=== PATIENT | male | born 1960 | race Caucasian/White ===

== ENCOUNTER 2018-01-26 16:10 | Emergency (ER) | payer OTHER ==
[~2018-01-26] VITALS: Ht 172.7 cm; Wt 81.0 kg
[2018-01-26 16:16] VITALS: TEMP 37; Ht 172.7 cm; Wt 81.0 kg
[2018-01-26 16:20] VITALS: O2SAT 98
[2018-01-26] MEDS: MoRPHine SULFATE 10 MG/ML CARP/VIAL IV STA (16:39)
[2018-01-26] MEDS ORDERED: OPTIRAY 320 IV PRN (16:45)
[2018-01-26] MEDS: ONDANSETRON INJ 2 MG/ML 2 ML VIAL IV STA (16:48)
[2018-01-26] MEDS: MoRPHine SULFATE 4 MG/ML 1 ML CARP\\VIAL ONE (16:49)
[2018-01-26 17:11] LABS: BASO % 0.2 %; BASO ABS # 0.01 K/uL (0-0.2); EOS % 2.7 %; EOS ABS # 0.13 K/uL (0-0.5); HEMATOCRIT 36.9 % (42-52); HEMOGLOBIN 11.8 g/dL (14.0-18.0); IG# 0.02 K/uL (0.00-0.02); LYMPH % 22.9 %; LYMPH ABS # 1.09 K/uL (1.2-3.4); MEAN CELL VOLUME 83.3 fL (80-100); MEAN CORPUSCULAR HEMOGLOBIN 26.6 pg (25-34); MONO % 11.9 %; MONO ABS # 0.57 K/uL (0.11-0.59); NEUT % 61.9 %; NEUT ABS # 2.95 K/uL (1.4-6.5); PLATELET COUNT 274 K/uL (130-400); RED CELL DISTRIBUTION WIDTH CV 22.8 % (11.5-14.5); RED CELL DISTRIBUTION WIDTH SD 68.6 fL (36.4-46.3); WHITE BLOOD COUNT 4.77 K/uL (4.8-10.8)
[2018-01-26 17:22] LABS: PTT PATIENT 24.3 SECONDS (21.0-31.0)
[2018-01-26 17:30] LABS: ALBUMIN 3.1 gm/dl (3.4-5.0); CALCIUM 8.3 mg/dl (8.5-10.1); CREATININE 0.83 mg/dl (0.60-1.40); POTASSIUM 3.8 mmol/L (3.5-5.1)
[2018-01-26 17:33] LABS: TOTAL PROTEIN 6.2 gm/dl (6.4-8.2)
--- NOTE | 2018-01-26 18:24 | DIAGNOSTIC IMAGING REPORT ---
CT ABD/PELVIS IV CONTRAST ONLY CLINICAL HISTORY: LUQ pain post colonoscopy COMPARISON STUDY: None. TECHNIQUE: Following the IV administration of 119 mL of Optiray-320, CT scan of the abdomen and pelvis was performed from the lung bases to the proximal femurs. Images are reviewed in the axial, sagittal, and coronal planes. IV contrast was administered without complication. A dose lowering technique was utilized adhering to the principles of ALARA. CT DOSE: 443.35 mGy.cm FINDINGS: Lower chest: The heart is normal in size and configuration, without pericardial effusion. The lung bases and pleural spaces are clear. There are postsurgical changes within the stomach and esophagus gastric junction Liver: There is mild hepatic steatosis. No focal masses are visualized. There is no ductal dilatation Gallbladder: Unremarkable. Spleen: Normal in size and attenuation. Pancreas: Unremarkable. Adrenal glands: Unremarkable. Kidneys: There is an 18 mm upper pole right renal cyst. There is no hydronephrosis. There is a 2.5 mm nonobstructing right renal calculus. Bowel: There are no transition zones indicate bowel obstruction. There is no acute diverticulitis. There are no findings to indicate acute appendicitis. Peritoneum: There is no intraperitoneal free air or abdominal ascites. Vasculature: There is an indwelling IVC filter. The struts protrude just outside the IVC lumen Adenopathy: None. Pelvic viscera: The bladder, and pelvic viscera are unremarkable. Skeletal structures: No destructive osseous lesions are seen. IMPRESSION: 1. No acute intra-abdominal or pelvic findings 2. No evidence of bowel obstruction. No evidence of free air 3. No acute inflammatory changes Electronically signed by: Igor Smith M.D. 01/26/2018 6:22 PM Dictated Date/Time: 01/26/2018 6:18 PM
[2018-01-26] MEDS: GI COCKTAIL PO STA ×2 (19:15→20:29)
[2018-01-26] MEDS: HYDROmorphone INJ 1 MG/ML SYR IV STA (19:39)
[2018-01-26] MEDS: LIDOCAINE HCL 2% VISC SOLN 20 ML UDC ONE ×2 (19:40→20:51)
[2018-01-26] MEDS: ALUMINUM/MAGNESIUM SUSP 30 ML UDC ONE ×2 (19:40→20:51)
--- NOTE | 2018-01-26 20:29 | EMERGENCY ROOM VISIT NOTE ---
History First contact with patient: 16:14 Chief Complaint: ABDOMINAL PAIN Stated Complaint: AB PAIN Nursing Triage Summary: Patient arrives to ED via BLS from [facility] [place]. Patient was there for EGD and Colonscopy today. Per EMS they did remove a polyp today. Patient reports he was having the testing done today because Earlier this month he was having rectal bleeding that required a blood transfusion (HGB 7.8) At [facility]. When patient woke up from Colonscopy patient was having severe abd pain and cramping. Patient lex 50mcg of Fetanyl, but pain was still uncontrolled so patient was sent to ED. History of Present Illness The patient is a 57 year old male who presents to the Emergency Room via BLS with complaints of abdominal pain following an EGD and colonoscopy today. Patient was at [facility] endoscopy [place]. He had an EGD and colonoscopy scheduled today. A gastric polyp was removed. Patient has had melena recently and had a recent admission to [facility] due to hemoglobin of 7.8. Patient states the pain is in his epigastric region and left upper quadrant and radiates into the back. He states that the pain began immediately after waking up from the colonoscopy. He rates the discomfort as sharp, 9/10 pain. The patient reports history of multiple abdominal surgeries and admissions for abdominal pain. He states that he has had a few admissions to [facility] over the past few months. He has had some vomiting. He denies any blood in his stools or syncope. Review of Systems A complete 10 point review of systems was reviewed with the patient with pertinent positives and negatives as per history of present illness. All else were negative. Past Medical/Surgical History Surgical Problems: (1) History of intestinal surgery Social History Smoking Status: Current Every Day Smoker Alcohol Use: none Marital Status: single Housing Status: lives with roommate Occupation Status: employed Physical Exam Vital Signs Date Time Temp Pulse Resp B/P (MAP) Pulse Ox O2 Delivery O2 Flow Rate FiO2 01/26/18 20:59 108 128/88 97 01/26/18 19:40 110 110/90 97 Room Air 01/26/18 18:01 136/100 95 Room Air 01/26/18 16:20 98 Room Air 01/26/18 16:16 37.0 75 140/96 99 Room Air Physical Exam VITALS: Vitals are noted on the nurse's note and reviewed by myself. Vital signs stable. GENERAL: This is a 57-year-old male, in no acute distress, nondiaphoretic, well- developed well-nourished. SKIN: The skin was without rashes. EARS: External auditory canals clear, tympanic membranes pearly self without erythema or effusion bilaterally. EYES: Pupils equal round and reactive to light and accommodation. MOUTH: Mucous membranes moist. HEART: Regular rate and rhythm without murmurs gallops or rubs. LUNGS: Clear to auscultation bilaterally without wheezes, rales or rhonchi. ABDOMEN: Positive bowel sounds x 4. The abdomen is soft and nondistended. There is tenderness to palpation the left upper quadrant and epigastric region. No guarding or rebound tenderness. NEURO: Patient was alert and oriented to person place and time. Medical Decision & Procedures ER Provider Diagnostic Interpretation: CT ABD/PELVIS IV CONTRAST ONLY FINDINGS: Lower chest: The heart is normal in size and configuration, without pericardial effusion. The lung bases and pleural spaces are clear. There are postsurgical changes within the stomach and esophagus gastric junction Liver: There is mild hepatic steatosis. No focal masses are visualized. There is no ductal dilatation Gallbladder: Unremarkable. Spleen: Normal in size and attenuation. Pancreas: Unremarkable. Adrenal glands: Unremarkable. Kidneys: There is an 18 mm upper pole right renal cyst. There is no hydronephrosis. There is a 2.5 mm nonobstructing right renal calculus. Bowel: There are no transition zones indicate bowel obstruction. There is no acute diverticulitis. There are no findings to indicate acute appendicitis. Peritoneum: There is no intraperitoneal free air or abdominal ascites. Vasculature: There is an indwelling IVC filter. The struts protrude just outside the IVC lumen Adenopathy: None. Pelvic viscera: The bladder, and pelvic viscera are unremarkable. Skeletal structures: No destructive osseous lesions are seen. IMPRESSION: 1. No acute intra-abdominal or pelvic findings 2. No evidence of bowel obstruction. No evidence of free air 3. No acute inflammatory changes Laboratory Results 01/26/18 16:54 Red Blood Count 4.43, Mean Corpuscular Volume 83.3, Mean Corpuscular Hemoglobin 26.6, Mean Corpuscular Hemoglobin Concent 32.0, Mean Platelet Volume 9.0, Neutrophils (%) (Auto) 61.9, Lymphocytes (%) (Auto) 22.9, Monocytes (%) (Auto) 11.9, Eosinophils (%) (Auto) 2.7, Basophils (%) (Auto) 0.2, Neutrophils # (Auto ) 2.95, Lymphocytes # (Auto) 1.09, Monocytes # (Auto) 0.57, Eosinophils # (Auto ) 0.13, Basophils # (Auto) 0.01 01/26/18 16:54 Test 01/26/18 16:54 White Blood Count 4.77 K/uL (4.8-10.8) Red Blood Count 4.43 M/uL (4.7-6.1) Hemoglobin 11.8 g/dL (14.0-18.0) Hematocrit 36.9 % (42-52) Mean Corpuscular Volume 83.3 fL (80-100) Mean Corpuscular Hemoglobin 26.6 pg (25-34) Mean Corpuscular Hemoglobin Concent 32.0 g/dl (32-36) Platelet Count 274 K/uL (130-400) Mean Platelet Volume 9.0 fL (7.4-10.4) Neutrophils (%) (Auto) 61.9 % Lymphocytes (%) (Auto) 22.9 % Monocytes (%) (Auto) 11.9 % Eosinophils (%) (Auto) 2.7 % Basophils (%) (Auto) 0.2 % Neutrophils # (Auto) 2.95 K/uL (1.4-6.5) Lymphocytes # (Auto) 1.09 K/uL (1.2-3.4) Monocytes # (Auto) 0.57 K/uL (0.11-0.59) Eosinophils # (Auto) 0.13 K/uL (0-0.5) Basophils # (Auto) 0.01 K/uL (0-0.2) RDW Standard Deviation 68.6 fL (36.4-46.3) RDW Coefficient of Variation 22.8 % (11.5-14.5) Immature Granulocyte % (Auto) 0.4 % Immature Granulocyte # (Auto) 0.02 K/uL (0.00-0.02) Polychromasia 1+ Anisocytosis PRESENT Prothrombin Time 10.3 SECONDS (9.0-12.0) Prothromb Time International Ratio 1.0 (0.9-1.1) Activated Partial Thromboplast Time 24.3 SECONDS (21.0-31.0) Partial Thromboplastin Ratio 0.9 Anion Gap 6.0 mmol/L (3-11) Est Creatinine Clear Calc Drug Dose 93.8 ml/min Estimated GFR () 112.4 Estimated GFR (Non- 97.0 BUN/Creatinine Ratio 5.6 (10-20) Calcium Level 8.3 mg/dl (8.5-10.1) Total Bilirubin 0.4 mg/dl (0.2-1) Aspartate Amino Transf (AST/SGOT) 16 U/L (15-37) Alanine Aminotransferase (ALT/SGPT) 19 U/L (12-78) Alkaline Phosphatase 93 U/L (45-117) Total Protein 6.2 gm/dl (6.4-8.2) Albumin 3.1 gm/dl (3.4-5.0) Globulin 3.1 gm/dl (2.5-4.0) Albumin/Globulin Ratio 1.0 (0.9-2) Medications Administered Medications (Trade) Dose Ordered Sig/Monique Route Start Time Stop Time Status Last Admin Dose Admin Ondansetron HCl (Zofran Inj) 4 mg NOW STAT IV 01/26/18 16:41 01/26/18 16:42 DC 01/26/18 16:48 4 MG Morphine Sulfate (MoRPHine SULFATE INJ) 8 mg STK-MED ONCE .ROUTE 01/26/18 16:46 01/26/18 16:47 DC 01/26/18 16:49 8 MG Hydromorphone HCl (Dilaudid Inj) 1 mg NOW STAT IV 01/26/18 19:15 01/26/18 19:28 DC 01/26/18 19:39 1 MG Al Hydroxide/Mg Hydroxide (Maalox Susp) 30 ml STK-MED ONCE .ROUTE 01/26/18 19:37 01/26/18 19:38 DC 01/26/18 19:40 30 ML Lidocaine HCl (Viscous Lidocaine 2% Soln) 20 ml STK-MED ONCE .ROUTE 01/26/18 19:37 01/26/18 19:38 DC 01/26/18 19:40 20 ML Al Hydroxide/Mg Hydroxide (Maalox Susp) 30 ml STK-MED ONCE .ROUTE 01/26/18 20:49 01/26/18 20:50 DC 01/26/18 20:51 30 ML Lidocaine HCl (Viscous Lidocaine 2% Soln) 20 ml STK-MED ONCE .ROUTE 01/26/18 20:49 01/26/18 20:50 DC 01/26/18 20:51 20 ML ECG Per My Interpretation Indication: abdominal pain Rate (beats per minute): 87 Rhythm: normal sinus Findings: no acute ischemic change, no ectopy, other (incomplete RBBB) Comparison ECG Date: no prior available ED Course The patient was evaluated as above. Labs were drawn and IV access was obtained. Patient was medicated with 8 mg morphine and [address] of the abdomen and pelvis was performed and read by radiology as above. Patient was reevaluated and findings were discussed. A GI cocktail and 1 mg Dilaudid were ordered. Discharge instructions were reviewed with the patient. The patient verbalized understanding of my assessment and treatment plan and was discharged home in good condition. Medical Decision Differential diagnosis includes splenic laceration, bowel perforation, infection , chronic abdominal pain, bowel obstruction, among others. The patient is a 57-year-old male who presents today complaining of left upper quadrant abdominal pain following a colonoscopy. Initially I was concerned for splenic injury. CT showed no evidence of intra-abdominal injury or free air. Labs revealed no leukocytosis, significant anemia or concerning electrolyte abnormalities. Patient was treated with pain medication as above. After speaking with the patient for a longer period of time, it became clear that this left upper quadrant pain is chronic for him and was the reason for the colonoscopy/EGD today. Patient was advised to follow-up with gastroenterology following discharge. He was given an additional GI cocktail as he feels this helps his abdominal pain significantly. He was advised to return here with vomiting, fevers or significant rectal bleeding. The patient's case was reviewed with Dr. Lozano, ED attending physician, who agreed with my assessment and treatment plan. Based on the patient's presentation and work up, I feel the patient is stable for outpatient treatment. The patient was educated to return to the emergency department for any worsening of their current condition or new/concerning symptoms. He will follow up with gastroenterology. Medication Reconcilliation Current Medication List: was personally reviewed by me Blood Pressure Screening Patient's blood pressure: Normal blood pressure Impression Primary Impression: LUQ abdominal pain Departure Information Dispostion Home / Self-Care Condition GOOD Referrals Gabinskiy, Silvio M.D. (PCP) Patient Instructions My [facility] Additional Instructions Call your cemetery keeper tomorrow to schedule follow-up. Return to the emergency department with vomiting, rectal bleeding, lightheadedness/dizziness, or any other worsening or new/concerning symptoms.
[2018-01-26 20:59] VITALS: BP 128/88; PULSE 108; O2SAT 97
== END 2018-01-26 21:00 | disposition home or self-care (01) ==
LOC: EDBD 16:10 → C.EDB 16:11
DX: R10.12 Left upper quadrant pain (principal); F17.200 Nicotine dependence, unspecified, uncomplicated

== ENCOUNTER 2019-09-11 19:34 | Inpatient (IN) ==
[2019-09-11] MEDS ORDERED: LORazepam 1 MG/2 ML VIAL IV STA ×2 (19:42→21:26)
[2019-09-11] MEDS ORDERED: SODIUM CHLORIDE 0.9% 500 ML IV SCH (19:45)
[2019-09-11] MEDS ORDERED: ACETAMINOPHEN 1,000 MG/100 ML VIAL IV STA (19:46)
--- NOTE | 2019-09-11 20:01 | Emergency Department Note ---
Entered by Xiao Mahajan acting as a scribe for Quincy Pennington MD History of Present Illness General Chief complaint: Chest Pain Stated complaint: CHEST PAIN Time Seen by Provider: 09/11/19 19:34 Source: patient Mode of arrival: EMS Limitations: other (Mental status) History of Present Illness Onset (ago): day(s) 4 Location: chest Radiation: extremity (left arm) Pain Consistency: + other (Persistent) Current Pain Intensity: 9 Quality: + other (Chest pain) Exacerbated By: + movement and + other (Deep breathing ) Associated symptoms: + chest pain, + loss of appetite, + nausea/vomiting, + shortness of breath and + other (Fall) The patient is a 59 year old male with a history of Prostate Cancer, Alcoholism, UT, PEs and abdominal surgeries presenting to the Emergency Department via EMS complaining of persistent chest pain starting 4 days ago. The patient reports that he has chest pain radiating down his left arm. He currently rates his chest pain 08/08. He states that he is short of breath. He explains that he is nauseous and has vomited. He notes that he has lost his appetite and hasnt eaten anything in 2 days. He adds that deep breathing and walking around worsens his chest pain. The patient reports that he thinks he fell 2 or 3 days ago. He states that he is an alcoholic and drinks about a pint of vodka per day. He explains that he thinks he last drank alcohol last night. He notes that he has recently stopped taking his medications. He adds that he regularly takes Xarelto for past PEs. The patients HPI and ROS are limited secondary to mental state. Home Medications Home Medications Medication Instructions Recorded Confirmed Type Nifedipine Rectal Oint 0.2 % AK BID 09/11/19 09/11/19 History allopurinol 100 mg PO DAILY 09/11/19 09/11/19 History ascorbic acid (vitamin C) 500 mg PO DAILY 09/11/19 09/11/19 History calcium citrate-vitamin D3 1 tab PO BID 09/11/19 09/11/19 History [Citracal + D Petites] cyanocobalamin (vitamin B-12) 1,000 mcg PO DAILY 09/11/19 09/11/19 History cyclobenzaprine 10 mg PO TID PRN 09/11/19 09/11/19 History dicyclomine 10 mg PO BID 09/11/19 09/11/19 History ferrous sulfate 325 mg PO BID 09/11/19 09/11/19 History folic acid 1 mg PO DAILY 09/11/19 09/11/19 History gabapentin 400 mg PO TID 09/11/19 09/11/19 History hydroxyzine pamoate [Vistaril] 25 mg PO QID PRN 09/11/19 09/11/19 History lorazepam 0.5 mg PO TID PRN MDD 3 TAB 09/11/19 09/11/19 History multivitamin [Multiple Vitamins] 1 tab PO DAILY 09/11/19 09/11/19 History ondansetron 4 mg PO Q6H PRN 09/11/19 09/11/19 History oxybutynin chloride 10 mg PO DAILY 09/11/19 09/11/19 History oxycodone-acetaminophen 1 tab PO Q6H PRN MDD 4 TAB 09/11/19 09/11/19 History pantoprazole 40 mg PO BID 09/11/19 09/11/19 History quetiapine 50 mg PO BID 09/11/19 09/11/19 History quetiapine 200 mg PO HS 09/11/19 09/11/19 History rivaroxaban 20 mg PO QDD 09/11/19 09/11/19 History sucralfate 1 g PO QID 09/11/19 09/11/19 History tamsulosin 0.4 mg PO BID 09/11/19 09/11/19 History thiamine HCl (vitamin B1) 100 mg PO DAILY 09/11/19 09/11/19 History venlafaxine 75 mg PO DAILY 09/11/19 09/11/19 History Allergies Allergy/AdvReac Type Severity Reaction Status Date / Time shrimp Allergy Anaphylaxis Unverified 09/11/19 23:33 aspirin AdvReac Tachycardia Unverified 09/11/19 23:34 IVP DYE Allergy Anaphylaxis Uncoded 09/11/19 23:32 Past Med/Surg History Medical History Alcoholism UT (myocardial infarction) PE (pulmonary thromboembolism) Prostate cancer Surgical History History of abdominal surgery History of intestinal surgery Social History Preferred Language: Khmer Feels Safe at Home: No Smoking Status: Current every day smoker Review of Systems The patients HPI and ROS are limited secondary to mental state. Physical Exam Vital Signs Vital Signs - 24 hr 09/11/19 19:42 Temperature 36.7 C Temperature Source Oral Sepsis Recent Fever Within 48 Hours No Sepsis New/Unexplained Change in Mental Status No Sepsis Action Taken by Nursing No Action Required Pulse Rate 113 H Pulse Rhythm Regular Pulse Strength Normal Respiratory Rate 20 Respiratory Effort / Characteristics Non-Labored Respiratory Depth Normal Respiratory Pattern Regular Blood Pressure 136/94 Blood Pressure Mean 108 Blood Pressure Position Lying Pulse Oximetry 99 Oxygen Delivery Method Room Air GENERAL: Patient is in no acute distress. HEENT: No acute trauma, normocephalic atraumatic, mucous membranes dry, no nasal congestion, no scleral icterus. NECK: No stridor, no adenopathy, no meningismus, trachea is midline. LUNGS: Clear to auscultation bilaterally, no wheeze, no rhonchi, breath sounds equal. HEART: Mildly tachycardic. Regular rhythm. No murmurs. CHEST: Tender to the anterior chest wall. Pain worsens with movement. ABDOMEN: Diffusely tender about the abdomen. Soft, bowel sounds positive, no hernias, no peritonitis. EXTREMITIES: No cyanosis or edema, full range of motion of all the joints without pain or difficulty, no signs for acute trauma. NEUROLOGIC: Poor historian. Some confusion noted. Tangential thinking. No focal motor deficits. Awake. SKIN: No rash, no jaundice, no diaphoresis. Procedures Free Text Procedures Peripheral Line Placement: Peripheral IV access Using a sterile technique with US guidance and the assistance of a nurse, a 20 gauge larger IV was placed in the right antecubital fascia. No complications. IV flushes well. Course 1943: The patient was evaluated in room A9B, and a complete history and physical examination were performed. 2035: I reevaluated the patient at this time. 2119: The nurse reported that a patent line in the patients ankle was placed b ut that it was not able to draw out blood. 2201: I spoke to the psychiatric trimming caser at this time who is not going to be able to assess the patient until he is more sober. 2209: I placed a peripheral line at this time. See procedure note. 2256: I spoke to the psychiatric trimming caser at this time who reports that she evaluated the patient and that he would like rehabilitation for his alcoholism. 2325: The trimming caser reports that the patient recently was an inpatient at [facility]. She states that the patient has said he wants to go to rehab before for his alcoholism and then backs out last minute. She explains that the patient has a support system and residence but that he chooses not to live there and chooses not to receive help. 2330: I discussed the patients case with Dr. Ifeoma HILL. He will evaluate the patient for further management. Administered Medications Morphine Sulfate (Morphine Sulfate) 4 mg IV Q20M PRN PRN Reason: Pain Stop: 09/25/19 21:25 Last Admin: 09/11/19 21:43 Dose: 4 mg Documented by: [id number] Discontinued Medications Diazepam (Valium) 5 mg IV NOW STA Stop: 09/11/19 21:58 Last Admin: 09/11/19 22:37 Dose: 5 mg Documented by: [id number] Lorazepam (Ativan) 1 mg in 2 mls @ 2 mls/min IV NOW STA Stop: 09/11/19 19:43 Last Admin: 09/11/19 20:01 Dose: 2 mls/min Documented by: [id number] Sodium Chloride (Nss) 500 mls @ 999 mls/hr IV .Q31M EDGAR Stop: 09/11/19 20:15 Last Infusion: 09/11/19 23:27 Dose: 0 mls/hr Documented by: [id number] Admin: 09/11/19 22:28 Dose: 999 mls/hr Documented by: [id number] Acetaminophen (Ofirmev) 1,000 mg in 100 mls @ 400 mls/hr IV NOW STA Stop: 09/11/19 20:00 Last Infusion: 09/11/19 22:16 Dose: 0 mls/hr Documented by: [id number] Admin: 09/11/19 21:50 Dose: 400 mls/hr Documented by: [id number] Lorazepam (Ativan) 1 mg in 2 mls @ 2 mls/min IV NOW STA Stop: 09/11/19 21:27 Last Admin: 09/11/19 21:43 Dose: 2 mls/min Documented by: [id number] Multivitamins 10 ml/ Thiamine HCl 100 mg/ Folic Acid 1 mg/Sodium Chloride 1,011.2 mls @ 1,011.2 mls/hr IV .Q1H ONE Stop: 09/11/19 22:25 Last Infusion: 09/11/19 23:27 Dose: 0 mls/hr Documented by: [id number] Admin: 09/11/19 22:28 Dose: 1,011.2 mls/hr Documented by: [id number] Medical Decision Making Differential Diagnosis Differentials include intracranial bleeding, alcohol withdrawal, alcohol abuse, pancreatitis, splenic or liver injury, bowel obstruction, rib fracture, sternal fracture, dehydration, electrolyte imbalance, anemia, UT and drug abuse amongst others. Medical Records Attestation: I reviewed the patient's medical records. Home Medications Current Medication List: was personally reviewed by me Laboratory Data Attestation: I reviewed the patient's lab results. Result diagrams: 09/11/19 21:03 09/11/19 21:03 Lab Results 09/11/19 09/11/19 09/11/19 Range/Units 21:03 21:03 21:03 WBC 4.69 L (4.8-10.8) K/uL RBC 4.37 L (4.7-6.1) M/uL Hgb 14.6 (14.0-18.0) g/dL Hct 42.5 (42-52) % MCV 97.3 (80-100) fL MCH 33.4 (25-34) pg MCHC 34.4 (32-36) g/dL RDW Std Deviation 52.3 H (36.4-46.3) fL RDW Coeff of Christina 14.7 H (11.5-14.5) % Plt Count 175 (130-400) K/uL MPV 9.8 (7.4-10.4) fL Immature Gran % (Auto) 0.4 % Neut % (Auto) 57.1 % Lymph % (Auto) 27.9 % Trinity % (Auto) 7.7 % Eos % (Auto) 6.0 % Baso % (Auto) 0.9 % Immature Gran # (Auto) 0.02 (0.00-0.02) K/uL Neut # (Auto) 2.68 (1.4-6.5) K/uL Lymph # (Auto) 1.31 (1.2-3.4) K/uL Trinity # (Auto) 0.36 (0.11-0.59) K/uL Eos # (Auto) 0.28 (0-0.5) K/uL Baso # (Auto) 0.04 (0-0.2) K/uL PT (9.0-12.0) Seconds INR (0.9-1.1) APTT (21.0-31.0) Seconds PTT Ratio Sodium 145 (136-145) mmol/L Potassium 3.7 (3.5-5.1) mmol/L Chloride 108 H (98-107) mmol/L Carbon Dioxide 25 (21-32) mmol/L Anion Gap 12.0 H (3-11) BUN 8 (7-18) mg/dl Creatinine 0.69 (0.6-1.4) mg/dl Est Cr Clr Drug Dosing 110.1 ml/min Est GFR ( Amer) 119.6 Est GFR (Non-Af Amer) 103.2 BUN/Creatinine Ratio 11.4 (10-20) Glucose 77 (70-99) mg/dl Calcium 8.9 (8.5-10.1) mg/dl Magnesium 2.0 (1.8-2.4) mg/dl Total Bilirubin 0.7 (0.2-1) mg/dl AST 51 H (15-37) U/L ALT 36 (12-78) U/L Alkaline Phosphatase 181 H (45-117) U/L Ammonia 35.5 H (11-32) umol/L Total Creatine Kinase 239 (39-308) U/L Troponin I < 0.015 (0-0.045) ng/ml Total Protein 6.7 (6.4-8.2) gm/dl Albumin 3.4 (3.4-5.0) gm/dl Globulin 3.3 (2.5-4.0) gm/dl Albumin/Globulin Ratio 1.0 (0.9-2) Lipase 81 (73-393) U/L TSH 0.323 (0.300-4.500) uIu/ml Ethyl Alcohol mg/dL (0-3) mg/dl 09/11/19 09/11/19 Range/Units 21:03 21:03 WBC (4.8-10.8) K/uL RBC (4.7-6.1) M/uL Hgb (14.0-18.0) g/dL Hct (42-52) % MCV (80-100) fL MCH (25-34) pg MCHC (32-36) g/dL RDW Std Deviation (36.4-46.3) fL RDW Coeff of Christina (11.5-14.5) % Plt Count (130-400) K/uL MPV (7.4-10.4) fL Immature Gran % (Auto) % Neut % (Auto) % Lymph % (Auto) % Trinity % (Auto) % Eos % (Auto) % Baso % (Auto) % Immature Gran # (Auto) (0.00-0.02) K/uL Neut # (Auto) (1.4-6.5) K/uL Lymph # (Auto) (1.2-3.4) K/uL Trinity # (Auto) (0.11-0.59) K/uL Eos # (Auto) (0-0.5) K/uL Baso # (Auto) (0-0.2) K/uL PT 10.8 (9.0-12.0) Seconds INR 1.1 (0.9-1.1) APTT 30.8 (21.0-31.0) Seconds PTT Ratio 1.1 Sodium (136-145) mmol/L Potassium (3.5-5.1) mmol/L Chloride (98-107) mmol/L Carbon Dioxide (21-32) mmol/L Anion Gap (3-11) BUN (7-18) mg/dl Creatinine (0.6-1.4) mg/dl Est Cr Clr Drug Dosing ml/min Est GFR ( Amer) Est GFR (Non-Af Amer) BUN/Creatinine Ratio (10-20) Glucose (70-99) mg/dl Calcium (8.5-10.1) mg/dl Magnesium (1.8-2.4) mg/dl Total Bilirubin (0.2-1) mg/dl AST (15-37) U/L ALT (12-78) U/L Alkaline Phosphatase (45-117) U/L Ammonia (11-32) umol/L Total Creatine Kinase (39-308) U/L Troponin I (0-0.045) ng/ml Total Protein (6.4-8.2) gm/dl Albumin (3.4-5.0) gm/dl Globulin (2.5-4.0) gm/dl Albumin/Globulin Ratio (0.9-2) Lipase (73-393) U/L TSH (0.300-4.500) uIu/ml Ethyl Alcohol mg/dL 294.6 H (0-3) mg/dl Imaging Data Radiologist's Impression: Radiology results as stated below per my review and the radiologist's interpretation: CT head/brain wo con CLINICAL HISTORY: 59 years-old Male presenting with fall, confusion. TECHNIQUE: Multidetector CT imaging of the head was performed without the use of intravenous contrast. IV contrast: None. One or more dose lowering techniques were used consistent with the principles of ALARA (as low as reasonably achievable), including automatic exposure control, mA or kV adjustment to individual patient size, and/or use of iterative reconstruction. COMPARISON: None. CT DOSE (mGy.cm): The estimated cumulative dose is 1329.86. FINDINGS: Employee Benefits Insurance Agent topogram: Unremarkable. Proportional ventricular and sulcal prominence, likely age-related parenchymal volume loss. No hemorrhage. Brain parenchyma normal in appearance with preserved self-white differentiation. No acute territorial infarct. No mass effect or midline shift. No extra-axial fluid collection. Paranasal sinuses and mastoid air cells clear. Calvarium intact. IMPRESSION: 1. No acute intracranial abnormality. Electronically signed by: Lebron Maravilla M.D. 09/11/2019 9:[address] chest wo con CLINICAL HISTORY: 59 years-old Male presenting with fall, pain. TECHNIQUE: Multidetector CT imaging of the chest was performed without the use of intravenous contrast. IV contrast: None. One or more dose lowering techniques were used consistent with the principles of ALARA (as low as reasonably achievable), including automatic exposure control, mA or kV adjustment to madelyn vidual patient size, and/or use of iterative reconstruction. COMPARISON: None. CT DOSE (mGy.cm): The estimated cumulative dose is 1329.6. FINDINGS: Employee Benefits Insurance Agent topogram: Unremarkable. Soft tissues: Normal thyroid and thoracic inlet. No axillary, supraclavicular, or mediastinal lymphadenopathy. Evaluation of the tamir limited without intravenous contrast. Atherosclerosis of the aorta. Normal heart size. Coronary artery calcification. No pericardial or pleural effusion. Hepatic steatosis. Surgical clips in the epigastrium at the gastroesophageal junction. Distended gallbladder, possibly on a physiologic basis. Lungs and airways: No pneumothorax. Central airways patent. Pulmonary arteries are not significantly enlarged relative to adjacent bronchi. No interlobular septal thickening. A few scattered punctate nodules, nonspecific. Polygonal peripheral solid 5 mm nodule in the superior segment of the right upper lobe (series 8 image 125). This has a benign morphology. Musculoskeletal: Degenerative changes of the spine. Exaggerated thoracic kyphosis with vertebral body height loss at T7 and T8 consistent with likely chronic compression fractures. Acute-appearing posterior minimally displaced right ninth rib fracture. Several old posterolateral left rib fractures evident. IMPRESSION: 1. Possible acute posterior right ninth rib fracture. Correlate with point tenderness. 2. Likely old compression fractures of T7 and T8. Correlate with point tenderness. 3. Multiple solid pulmonary nodules measuring up to 5 mm. These are benign- appearing though indeterminate, follow-up per Fleischner Society 2017 recommendations below. 4. Hepatic steatosis. Summary of Fleischner Society 2017 Recommendations (H Jeremías et al. Guidelines for management of incidental pulmonary nodules detected on CT images: From the Fleischner Society 2017. Radiology 2017; 284: 228-243.) SOLID NODULES Single nodule; size < 6 mm * Low risk patients: No routine follow-up * High risk patients: Optional CT at 12 months Single nodule; size 6-8 mm * Low risk patients: CT at 6-12 months, then consider CT at 18-24 months * High risk patients: CT at 6-12 months, then at 18-24 months Single nodule; size > 8 mm * Either low or high risk patients: Considered CT at 3 months, PET/CT, or tissue sampling Multiple nodules; size < 6 mm * Low risk patients: No routine follow up * High risk patients: Optional CT at 12 months Multiple nodules; size 6-8 mm * Low risk patients: CT at 3-6 months, then consider CT at 18-24 months * High risk patients: CT at 3-6 months, then at 18-24 months Multiple nodules; size > 8 mm * Low risk patients: CT at 3-6 months, then consider at 18-24 months * High risk patients: CT at 3-6 months, then at 18-24 months SUBSOLID NODULES Single ground-glass nodule * Nodule size < 6 mm: No routine follow-up * Nodule size > or = 6 mm: CT at 6-12 months to confirm persistence, then CT every 2 years until 5 years Single part-solid nodule * Nodule size < 6 mm: No routine follow-up * Nodules size > or = 6 mm: CT at 3-6 months to confirm persistence. If unchanged and solid component remains < 6 mm, annual CT should be performed for 5 years Multiple nodules * Nodule size < 6 mm: CT at 3-6 months. If stable, consider CT at 2 and 4 years. * Nodules size > or = 6 mm: CT at 3-6 months. Subsequent management based on the most suspicious nodule(s) NOTE: 1) These guidelines apply to incidental nodules. These guidelines do NOT apply to patients younger than 35 years, immunocompromised patients, or patients with cancer. 2) Risk categories: * Low risk patients: Minimal or absent history of smoking and/or other known risk factors * High risk patients: History of smoking, exposure to other carcinogens, emphysema, fibrosis, upper lobe location, family history of lung cancer, etc. 3) If a nodule up to 8 mm is partly solid or is ground glass, further follow-up is required after 24 months to exclude possible slow growing adenocarcinoma. Electronically signed by: Lebron Maravilla M.D. 09/11/2019 9:[address] abd pelvis wo con CLINICAL HISTORY: 59 years-old Male presenting with poss obstruc or rupture, fall, confusion. TECHNIQUE: Multidetector CT of the abdomen and pelvis was performed without the use of intravenous contrast. IV contrast: None. One or more dose lowering techniques were used consistent with the principles of ALARA (as low as reasonably achievable), including automatic exposure control, mA or kV adjustment to individual patient size, and/or use of iterative reconstruction. COMPARISON: 01/26/2018. CT DOSE (mGy.cm): The estimated cumulative dose is 1329.86 mGy.cm. FINDINGS: Employee Benefits Insurance Agent topogram: Unremarkable. Lung bases: Normal heart size. No pericardial or pleural effusion. No focal infiltrate or nodule at the lung bases. Liver: Normal morphology. Density consistent with hepatic steatosis. Biliary: No gross biliary ductal dilatation allowing for noncontrast technique. Distended gallbladder, possibly on a physiologic basis. No demonstrable pericholecystic fluid or inflammatory changes. No convincing wall thickening. Pancreas: Moderate parenchymal atrophy. Spleen: Normal noncontrast appearance. Adrenal glands: Normal noncontrast appearance. Kidneys and ureters: Cyst noted at the upper pole the right kidney. Nonobstructing right nephrolithiasis. No hydronephrosis. Ureters nondistended. Bladder: Normal noncontrast appearance. Pelvic organs: Normal noncontrast appearance. Bowel: Normal noncontrast appearance. No bowel obstruction. Surgical clips noted in the epigastrium and along the distal esophagus at the gastroesophageal junction Peritoneal cavity: No free fluid or intraperitoneal gas. Lymph nodes: No gross lymphadenopathy allowing for noncontrast technique. Vasculature: Atherosclerosis of the normal caliber abdominal aorta. Abdominal wall: No focal infiltration to suggest contusion or hematoma. Musculoskeletal: Posterior acute appearing right ninth rib fracture. IMPRESSION: 1. Acute-appearing posterior right ninth rib fracture. Correlate with point tenderness. 2. Allowing for noncontrast technique, no acute intra-abdominal pathology. 3. Hepatic steatosis. 4. Likely physiologically distended gallbladder. Electronically signed by: Lebron Maravilla M.D. 09/11/2019 9:51 PM XR chest 1V portable CLINICAL HISTORY: 59 years-old Male presenting with Chest Pain. TECHNIQUE: Portable upright AP view of the chest was obtained. COMPARISON: None. FINDINGS: Atherosclerosis of the aortic arch. Cardiac silhouette normal in size. No focal opacity. No large effusion or pneumothorax. Age indeterminant posterior left seventh rib fracture. IMPRESSION: 1. No acute cardiopulmonary disease. 2. Age-indeterminate posterior left seventh rib fracture. Correlate with point tenderness. Electronically signed by: Lebron Maravilla M.D. 09/11/2019 8:16 PM ECG Data Attestation: I personally reviewed and interpreted this ECG as follows: Indication: chest pain Rate (beats per minute): 104 Rhythm: sinus tachycardia Findings: + other (QTC 449.); no ST elevation and no ectopy Blood Pressure Blood Pressure Findings: Elevated blood pressure Blood Pressure Disposition: further management by hospitalist (Dr. Ifeoma HILL) MDM Narrative There is no leukocytosis or concerning anemia. No coagulopathy. No significant electrolyte abnormality or kidney failure. There were few subtle liver enzyme elevations. Ammonia level was slightly elevated at 35. I suspect the liver findings are from his alcoholism. Total CK was not elevated, this rules out rhabdomyolysis. There is no evidence for pancreatitis. The patient appeared to be in a euthyroid state. EKG showed a sinus rhythm, no acute ischemia. Cardiac enzyme testing x1 is not consistent with acute cardiac injury. Chest film shows some acute versus chronic rib fractures. There is no pneumothorax or pulmonary contusion. No pneumonia. Alcohol level was elevated at 294. Brain CT shows no acute bleed or mass-effect. Chest CT does show an acute ninth right rib fracture and some old thoracic compression fractures. Abdominal CT shows no acute solid organ injury, no acute surgical process. The patient received IV saline, he was given IV saline with multivitamins, thiamine and folate. He received IV Ativan, 1 mg IM and then 1 mg IV. He was given 5 mg of IV Valium and then 1 g of IV Tylenol. He received IV morphine 4 mg IV as needed for pain. The patient was a very difficult IV stick. The IV team was able to place a small IV in his ankle. Using ultrasound and some assistance, we were able to place a larger IV in the right antecubital fossa. Patient was seen by case management. The patient is asking for alcohol rehab. The patient is resting comfortably. He is receiving his IV fluids. He will be watched here this evening until he becomes more sober and then hopefully, alcohol rehab can be arranged. Of note, the patient has reportedly asked for alcohol rehab recently at other local hospitals and then once arranged, decided to leave. Hopefully, we will be able to place him in rehab with this ED visit. In short, the patient has a fractured right rib, no other concerning or worrisome findings noted. I suspect the rib fracture is causing his chest pain. His chest pain is reproducible with movement. The patient's case was signed to Dr. Dia at the change of shift. Impression & Plan Chest pain, precordial, Alcohol abuse, Fracture of rib, Acute dehydration, Frequent falls, Tachycardia Critical Care Time Critical Care Time: Yes Total Critical Care Time: 40 I have personally spent 40 minutes of critical care time in the direct management of this patient. This includes bedside care, interpretation of diagnostic studies, and testing, discussion with consultants, patient, and family members, and other required patient management activities. This 40 minutes is in excess of all separately billable procedures. Discharge Plan Visit Data Chief Complaint: Chest Pain Stated Complaint: CHEST PAIN ED Provider: Gary Dia Discharge Problem: Chest pain, precordial, Alcohol abuse, Fracture of rib, Acute dehydration, Frequent falls, Tachycardia Patient Disposition: Still a Patient Forms Stand Alone Forms: Call Back Authorization, My [facility] Prescriptions Prescriptions: No Action thiamine HCl (vitamin B1) 100 mg Tablet 100 mg PO DAILY RF: 0 cyanocobalamin (vitamin B-12) 1,000 mcg Tablet 1,000 mcg PO DAILY RF: 0 folic acid 1 mg Tablet 1 mg PO DAILY RF: 0 multivitamin [Multiple Vitamins] Tablet 1 tab PO DAILY RF: 0 calcium citrate-vitamin D3 [Citracal + D Petites] 200 mg calcium -250 unit Tablet 1 tab PO BID RF: 0 ferrous sulfate 325 mg (65 mg iron) Tablet 325 mg PO BID RF: 0 ondansetron 4 mg Tablet,Disintegrating 4 mg PO Q6H PRN (Reason: Nausea) RF: 0 rivaroxaban 20 mg Tablet 20 mg PO QDD RF: 0 dicyclomine 10 mg capsule 10 mg PO BID RF: 0 Nifedipine Rectal Oint 0.2 % AK BID RF: 0 hydroxyzine pamoate [Vistaril] 25 mg Capsule 25 mg PO QID PRN (Reason: Anxiety) RF: 0 sucralfate 1 gram tablet 1 g PO QID RF: 0 lorazepam 0.5 mg tablet 0.5 mg PO TID MDD 3 TAB PRN (Reason: Anxiety) RF: 0 oxybutynin chloride 10 mg tablet extended release 24hr 10 mg PO DAILY RF: 0 pantoprazole 40 mg tablet,delayed release (DR/EC) 40 mg PO BID RF: 0 allopurinol 100 mg Tablet 100 mg PO DAILY RF: 0 cyclobenzaprine 10 mg tablet 10 mg PO TID PRN (Reason: Spasms) RF: 0 gabapentin 400 mg capsule 400 mg PO TID RF: 0 venlafaxine 75 mg capsule,extended release 24hr 75 mg PO DAILY RF: 0 ascorbic acid (vitamin C) 500 mg Tablet 500 mg PO DAILY RF: 0 quetiapine 200 mg tablet 200 mg PO HS RF: 0 quetiapine 50 mg tablet 50 mg PO BID RF: 0 tamsulosin 0.4 mg capsule 0.4 mg PO BID RF: 0 oxycodone-acetaminophen 5-325 mg tablet 1 tab PO Q6H MDD 4 TAB PRN (Reason: Pain) RF: 0 Referrals Referrals: Aung Aguilar PA-C [Primary Care Provider] - Discharge Problem: Fracture of rib Qualifiers: Encounter type: initial encounter Rib fracture type: single rib Fracture type: closed Laterality: left Qualified Code(s): S22.32XA - Fracture of one rib, left side, initial encounter for closed fracture The scribe's documentation has been prepared under my direction and personally reviewed by me in its entirety. I confirm that the note above accurately reflects all work, treatment, procedures, and medical decision making performed by me.
--- NOTE | 2019-09-11 20:17 | XRay Report ---
XR chest 1V portable CLINICAL HISTORY: 59 years-old Male presenting with Chest Pain. TECHNIQUE: Portable upright AP view of the chest was obtained. COMPARISON: None. FINDINGS: Atherosclerosis of the aortic arch. Cardiac silhouette normal in size. No focal opacity. No large eff usion or pneumothorax. Age indeterminant posterior left seventh rib fracture. IMPRESSION: 1. No acute cardiopulmonary disease. 2. Age-indeterminate posterior left seventh rib fracture. Correlate with point tenderness. Electronically signed by: Lebron Maravilla M.D. 09/11/2019 8:16 PM
[2019-09-11 21:18] LABS: Basophils # (auto) 0.04 K/uL (0-0.2); Basophils % (auto) 0.9 %; Eosinophils # (auto) 0.28 K/uL (0-0.5); Hematocrit (blood only) 42.5 % (42-52); Hemoglobin 14.6 g/dL (14.0-18.0); Immature Granulocytes # (auto) 0.02 K/uL (0.00-0.02); Immature Granulocytes % (auto) 0.4 %; Lymphocytes # (auto) 1.31 K/uL (1.2-3.4); Lymphocytes % (auto) 27.9 %; Mean Corpuscular Hemoglobin 33.4 pg (25-34); Mean Corpuscular Hgb Conc 34.4 g/dL (32-36); Mean Corpuscular Volume 97.3 fL (80-100); Mean Platelet Volume 9.8 fL (7.4-10.4); Monocytes # (auto) 0.36 K/uL (0.11-0.59); Monocytes % (auto) 7.7 %; Neutrophils # (auto) 2.68 K/uL (1.4-6.5); Neutrophils % (auto) 57.1 %; Platelet Count 175 K/uL (130-400); RDW Coefficient of Variation 14.7 % (11.5-14.5); RDW Standard Deviation 52.3 fL (36.4-46.3); Red Blood Count 4.37 M/uL (4.7-6.1); White Blood Count 4.69 K/uL (4.8-10.8)
[2019-09-11] MEDS ORDERED: MULTI-VITAMIN INFUSION 10 ML, THIAMINE HCL 100 MG, FOLIC ACID 1 MG in SODIUM CHLORIDE 0... IV ONE (21:26)
[2019-09-11 21:28] LABS: INR 1.1 (0.9-1.1); Partial Thromboplastin Ratio 1.1; Partial Thromboplastin Time 30.8 Seconds (21.0-31.0); Prothrombin Time 10.8 Seconds (9.0-12.0)
[2019-09-11 21:35] LABS: Alanine Aminotransferase 36 U/L (12-78); Albumin Level 3.4 gm/dl (3.4-5.0); Aspartate Aminotransferase 51 U/L (15-37); BUN Creatinine Ratio 11.4 (10-20); Blood Urea Nitrogen 8 mg/dl (7-18); Calcium 8.9 mg/dl (8.5-10.1); Carbon Dioxide 25 mmol/L (21-32); Chloride 108 mmol/L (98-107); Creatinine Clr Calc Pharmacy 110.1 ml/min; Est GFR (African American) 119.6; Est GFR (Non-African American) 103.2; Glucose 77 mg/dl (70-99); Lipase 81 U/L (73-393); Potassium 3.7 mmol/L (3.5-5.1); Sodium 145 mmol/L (136-145)
--- NOTE | 2019-09-11 21:41 | CT Scan Report ---
CT head/brain wo con CLINICAL HISTORY: 59 years-old Male presenting with fall, confusion. TECHNIQUE: Multidetector CT imaging of the head was performed without the use of intravenous contrast . IV contrast: None. One or more dose lowering techniques were used consistent with the principles of ALARA (as low as reasonably achievable), including automatic exposure control, mA or kV adjustment t o individual patient size, and/or use of iterative reconstruction. COMPARISON: None. CT DOSE (mGy.cm): The estimated cumulative dose is 1329.86. FINDINGS: Meeting Specialist topogram: Unremarkable. Proportional ventricular and sulcal prominence, likely age-related parenchymal volume loss. No hemorr maury. Brain parenchyma normal in appearance with preserved self-white differentiation. No acute taj torial infarct. No mass effect or midline shift. No extra-axial fluid collection. Paranasal sinuses a nd mastoid air cells clear. Calvarium intact. IMPRESSION: 1. No acute intracranial abnormality. Electronically signed by: Lebron Maravilla M.D. 09/11/2019 9:40 PM
[2019-09-11] MEDS: MoRPHine SULFATE 4 MG/ML 1 ML CARP\\VIAL IV PRN (21:43)
[2019-09-11 21:46] LABS: Alkaline Phosphatase 181 U/L (45-117); Bilirubin,Total 0.7 mg/dl (0.2-1); Creatine Kinase 239 U/L (39-308); Globulin 3.3 gm/dl (2.5-4.0); Thyroid Stimulating Hormone 0.323 uIu/ml (0.300-4.500); Total Protein 6.7 gm/dl (6.4-8.2); Troponin I < 0.015 ng/ml (0-0.045)
--- NOTE | 2019-09-11 21:47 | CT Scan Report ---
CT chest wo con CLINICAL HISTORY: 59 years-old Male presenting with fall, pain. TECHNIQUE: Multidetector CT imaging of the chest was performed without the use of intravenous contras t. IV contrast: None. One or more dose lowering techniques were used consistent with the principles o f ALARA (as low as reasonably achievable), including automatic exposure control, mA or kV adjustment to individual patient size, and/or use of iterative reconstruction. COMPARISON: None. CT DOSE (mGy.cm): The estimated cumulative dose is 1329.6. FINDINGS: Health And Physical Education Teacher topogram: Unremarkable. Soft tissues: Normal thyroid and thoracic inlet. No axillary, supraclavicular, or mediastinal lymphad enopathy. Evaluation of the tamir limited without intravenous contrast. Atherosclerosis of the aorta. Normal heart size. Coronary artery calcification. No pericardial or pleural effusion. Hepatic steatos is. Surgical clips in the epigastrium at the gastroesophageal junction. Distended gallbladder, possib ly on a physiologic basis. Lungs and airways: No pneumothorax. Central airways patent. Pulmonary arteries are not significantly enlarged relative to adjacent bronchi. No interlobular septal thickening. A few scattered punctate no dules, nonspecific. Polygonal peripheral solid 5 mm nodule in the superior segment of the right upper lobe (series 8 image 125). This has a benign morphology. Musculoskeletal: Degenerative changes of the spine. Exaggerated thoracic kyphosis with vertebral body height loss at T7 and T8 consistent with likely chronic compression fractures. Acute-appearing poste rior minimally displaced right ninth rib fracture. Several old posterolateral left rib fractures evid ent. IMPRESSION: 1. Possible acute posterior right ninth rib fracture. Correlate with point tenderness. 2. Likely old compression fractures of T7 and T8. Correlate with point tenderness. 3. Multiple solid pulmonary nodules measuring up to 5 mm. These are benign-appearing though indeterm inate, follow-up per Fleischner Society 2017 recommendations below. 4. Hepatic steatosis. Summary of Fleischner Society 2017 Recommendations (H Jeremías et al. Guidelines for management of i ncidental pulmonary nodules detected on CT images: From the Fleischner Society 2017. Radiology 2017; 284: 228-243.) SOLID NODULES Single nodule; size < 6 mm * Low risk patients: No routine follow-up * High risk patients: Optional CT at 12 months Single nodule; size 6-8 mm * Low risk patients: CT at 6-12 months, then consider CT at 18-24 months * High risk patients: CT at 6-12 months, then at 18-24 months Single nodule; size > 8 mm * Either low or high risk patients: Considered CT at 3 months, PET/CT, or tissue sampling Multiple nodules; size < 6 mm * Low risk patients: No routine follow up * High risk patients: Optional CT at 12 months Multiple nodules; size 6-8 mm * Low risk patients: CT at 3-6 months, then consider CT at 18-24 months * High risk patients: CT at 3-6 months, then at 18-24 months Multiple nodules; size > 8 mm * Low risk patients: CT at 3-6 months, then consider at 18-24 months * High risk patients: CT at 3-6 months, then at 18-24 months SUBSOLID NODULES Single ground-glass nodule * Nodule size < 6 mm: No routine follow-up * Nodule size > or = 6 mm: CT at 6-12 months to confirm persistence, then CT every 2 years until 5 y ears Single part-solid nodule * Nodule size < 6 mm: No routine follow-up * Nodules size > or = 6 mm: CT at 3-6 months to confirm persistence. If unchanged and solid componen t remains < 6 mm, annual CT should be performed for 5 years Multiple nodules * Nodule size < 6 mm: CT at 3-6 months. If stable, consider CT at 2 and 4 years. * Nodules size > or = 6 mm: CT at 3-6 months. Subsequent management based on the most suspicious nod ule(s) NOTE: 1) These guidelines apply to incidental nodules. These guidelines do NOT apply to patients younger th an 35 years, immunocompromised patients, or patients with cancer. 2) Risk categories: * Low risk patients: Minimal or absent history of smoking and/or other known risk factors * High risk patients: History of smoking, exposure to other carcinogens, emphysema, fibrosis, upper lobe location, family history of lung cancer, etc. 3) If a nodule up to 8 mm is partly solid or is ground glass, further follow-up is required after 24 months to exclude possible slow growing adenocarcinoma. Electronically signed by: Lebron Maravilla M.D. 09/11/2019 9:46 PM
--- NOTE | 2019-09-11 21:52 | CT Scan Report ---
CT abd pelvis wo con CLINICAL HISTORY: 59 years-old Male presenting with poss obstruc or rupture, fall, confusion. TECHNIQUE: Multidetector CT of the abdomen and pelvis was performed without the use of intravenous co ntrast. IV contrast: None. One or more dose lowering techniques were used consistent with the princip les of ALA (as low as reasonably achievable), including automatic exposure control, mA or kV adjust ment to individual patient size, and/or use of iterative reconstruction. COMPARISON: 01/26/2018. CT DOSE (mGy.cm): The estimated cumulative dose is 1329.86 mGy.cm. FINDINGS: Aquarium Tank Attendant topogram: Unremarkable. Lung bases: Normal heart size. No pericardial or pleural effusion. No focal infiltrate or nodule at t he lung bases. Liver: Normal morphology. Density consistent with hepatic steatosis. Biliary: No gross biliary ductal dilatation allowing for noncontrast technique. Distended gallbladder , possibly on a physiologic basis. No demonstrable pericholecystic fluid or inflammatory changes. No convincing wall thickening. Pancreas: Moderate parenchymal atrophy. Spleen: Normal noncontrast appearance. Adrenal glands: Normal noncontrast appearance. Kidneys and ureters: Cyst noted at the upper pole the right kidney. Nonobstructing right nephrolithia sis. No hydronephrosis. Ureters nondistended. Bladder: Normal noncontrast appearance. Pelvic organs: Normal noncontrast appearance. Bowel: Normal noncontrast appearance. No bowel obstruction. Surgical clips noted in the epigastrium a nd along the distal esophagus at the gastroesophageal junction Peritoneal cavity: No free fluid or intraperitoneal gas. Lymph nodes: No gross lymphadenopathy allowing for noncontrast technique. Vasculature: Atherosclerosis of the normal caliber abdominal aorta. Abdominal wall: No focal infiltration to suggest contusion or hematoma. Musculoskeletal: Posterior acute appearing right ninth rib fracture. IMPRESSION: 1. Acute-appearing posterior right ninth rib fracture. Correlate with point tenderness. 2. Allowing for noncontrast technique, no acute intra-abdominal pathology. 3. Hepatic steatosis. 4. Likely physiologically distended gallbladder. Electronically signed by: Lebron Maravilla M.D. 09/11/2019 9:51 PM
[2019-09-11] MEDS ORDERED: DIAZEPAM 5 MG/ML INJ 10ML VIAL IV STA (21:57)
--- NOTE | 2019-09-11 23:46 | Emergency Department Note ---
ED Visit Note ED Physician Sign Out Note: 59 yr old male who has been visiting multiple ERs over the last few days for apparently various complaints who called 911 today to be brought to the ED. Intoxicated requesting pain medications on arrival for chest pain. Large work- up done with rib fracture indeterminant age. Intoxicated and sleeping on my evaluation. Tachycardic HR 120s and Sats 95%. Labs reveal Etoh ~300 on arrival. Plan to monitor overnight for withdrawal findings and rehab placement in morning. On discussion in AM patient states he has been trying to get in to rehab for the last week with multiple ED visits without success. Admits HR is regularly in 130s and admits he drinks ETOH daily. States right lower posterior rib pain currently worse with movement. Sats OK, no rash, no crepitus. Extensive CT reviewed. Signed out to Dr Mejia pending case management discussion with patient regarding placement. Patient states he has never had withdrawal seizure nor DTs and notes he has done OK with librium in past to get through alcohol withdrawal. Gary Dia MD : Fracture of rib Qualifiers: Encounter type: initial encounter Rib fracture type: single rib Fracture type: closed Laterality: left Qualified Code(s): S22.32XA - Fracture of one rib, left side, initial encounter for closed fracture
[2019-09-12] MEDS: MoRPHine SULFATE 4 MG/ML 1 ML CARP\\VIAL IV PRN ×2 (01:17→03:55)
[2019-09-12] MEDS ORDERED: DIAZEPAM 5 MG/ML INJ 10ML VIAL IV STA ×2 (02:50→08:49)
[2019-09-12] MEDS ORDERED: SODIUM CHLORIDE 0.9% 1000ML 1,000 ML IV ONE (02:50)
[2019-09-12 04:43] LABS: Amphetamines+Metham, Urine Neg (Neg); Barbiturates, Urine Neg (Neg); Benzodiazepine, Urine Pos (Neg); Cocaine, Urine Neg (Neg); MDMA (Ecstacy), Urine Neg (Neg); Methadone, Urine Neg (Neg); Opiate, Urine Pos (Neg); Phencyclidine, Urine Neg (Neg)
[2019-09-12] MEDS ORDERED: ACETAMINOPHEN 500 MG TAB PO STA (08:49)
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
[2019-09-12] MEDS ORDERED: chlordiazePOXIDE ALCOHOL WITHDRAWL 50MG PO STA (11:06)
[2019-09-12] MEDS ORDERED: ONDANSETRON INJ 2 MG/ML 2 ML VIAL IV PRN (11:06)
[2019-09-12] MEDS ORDERED: ATIVAN IV ALCOHOL WITHDRAWL IV SCH (11:06)
[2019-09-12] MEDS ORDERED: CYCLOBENZAPRINE HCL 10 MG TAB PO PRN (11:06)
[2019-09-12] MEDS ORDERED: LORazepam 1 MG/2 ML VIAL IV PRN ×2 (11:06)
[2019-09-12] MEDS: OXYCODONE/ACETAMINOPHEN 5mg/325mg TAB PO PRN (11:42)
[2019-09-12] MEDS: LORazepam 2 MG/4 ML VIAL IV PRN ×3 (11:43→23:29)
[2019-09-12] MEDS: LACTATED RINGER'S 1,000 ML IV SCH ×2 (11:48→22:04)
[2019-09-12] MEDS: PANTOprazole 40 MG TAB PO SCH ×2 (12:28→20:07)
[2019-09-12] MEDS: QUETIAPINE FUMARATE 25 MG TABLET PO SCH ×2 (12:28→20:08)
[2019-09-12] MEDS: TAMSULOSIN HCL 0.4 MG CAP PO SCH ×2 (12:28→20:05)
[2019-09-12] MEDS: THIAMINE HCL 100 MG TAB PO SCH (12:28)
[2019-09-12] MEDS: SUCRALFATE 1 GM TAB PO SCH ×3 (12:28→20:04)
[2019-09-12] MEDS: VENLAFAXINE HCL XR 75 MG CAPXR PO SCH (12:28)
[2019-09-12] MEDS: FERROUS SULFATE 325 MG TAB PO SCH ×2 (12:29→20:05)
[2019-09-12] MEDS: allopurinoL 100 MG TAB PO SCH (12:29)
[2019-09-12] MEDS: GABAPENTIN 400 MG CAP PO SCH ×2 (12:29→20:06)
[2019-09-12] MEDS: FOLIC ACID 1 MG TAB PO SCH (12:29)
[2019-09-12] MEDS: LIDOCAINE 5% 1 PATCH TD SCH (12:29)
[2019-09-12] MEDS: DICYCLOMINE HCL 10 MG CAP PO SCH ×2 (12:29→20:03)
[2019-09-12] MEDS: chlordiazePOXIDE HCl 25 MG CAP PO SCH ×3 (12:37→23:28)
[2019-09-12] MEDS: LORazepam 3 MG/6 ML VIAL IV PRN (12:47)
--- NOTE | 2019-09-12 13:04 | Emergency Department Note ---
Entered by Jhonathan Rosales acting as a scribe for Talha Mejia M.D. ED Visit Note Signed out to me. Patient is a 59-year-old gentleman history of alcohol abuse intoxicated last night with pain localizing to what appears to be a rib fracture. Patient was requesting rehabs placement. He was monitored overnight for improvement of his symptoms. Received Ativan/Valium/Tylenol for pain and muscle spasm control. Evaluated by case management to see for possible rehab placement. However on my reexamination the patient's tachycardic hypertensive and diffusely tremulous. Given this I gave him additional Valium his concerns for alcohol withdrawal. Not stable at this time for rehab placement. Discussed with the hospitalist for medical admission to help manage this and seek further rehab in the future. 0855: Spoke to the resident Dr. Vaz about patient's case. Patient will be accepted by Dr. Lawrence - [facility] Hospitalist Acute Alcohol Withdrawal, R 9th rib fracture . : Fracture of rib Qualifiers: Encounter type: initial encounter Rib fracture type: single rib Fracture type: closed Laterality: left Qualified Code(s): S22.32XA - Fracture of one rib, left side, initial encounter for closed fracture The scribe's documentation has been prepared under my direction and personally reviewed by me in its entirety. I confirm that the note above accurately reflects all work, treatment, procedures, and medical decision making performed by me.
[2019-09-12] MEDS ORDERED: PHENobarbital sodium 65 MG/ML VIAL IV ONE (13:45)
[2019-09-12] MEDS: RIVAROXABAN 20 MG TAB PO SCH (17:18)
[2019-09-12] MEDS: CALCIUM 600MG + VIT D 400 IU TAB PO SCH (20:04)
[2019-09-12] MEDS: QUETIAPINE FUMARATE 200 MG TAB PO SCH (20:07)
[2019-09-13] MEDS: chlordiazePOXIDE HCl 25 MG CAP PO SCH ×3 (06:27→20:21)
[2019-09-13 06:32] LABS: Est GFR (African American) 127.5
[2019-09-13 06:33] LABS: Albumin Level 2.7 gm/dl (3.4-5.0); BUN Creatinine Ratio 13.3 (10-20); Calcium 8.7 mg/dl (8.5-10.1); Creatinine Clr Calc Pharmacy 128.8 ml/min
[2019-09-13 06:35] LABS: Albumin Globulin Ratio 0.9 (0.9-2); Bilirubin,Total 1.2 mg/dl (0.2-1); Total Protein 5.7 gm/dl (6.4-8.2)
[2019-09-13 06:37] LABS: Basophils # (auto) 0.01 K/uL (0-0.2); Basophils % (auto) 0.2 %; Eosinophils # (auto) 0.37 K/uL (0-0.5); Eosinophils % (auto) 8.7 %; Hematocrit (blood only) 35.8 % (42-52); Hemoglobin 11.9 g/dL (14.0-18.0); Immature Granulocytes # (auto) 0.01 K/uL (0.00-0.02); Immature Granulocytes % (auto) 0.2 %; Lymphocytes # (auto) 0.63 K/uL (1.2-3.4); Lymphocytes % (auto) 14.9 %; Mean Corpuscular Hemoglobin 32.7 pg (25-34); Mean Corpuscular Volume 98.4 fL (80-100); Mean Platelet Volume 10.6 fL (7.4-10.4); Monocytes # (auto) 0.34 K/uL (0.11-0.59); Neutrophils # (auto) 2.88 K/uL (1.4-6.5); Platelet Count 108 K/uL (130-400); RDW Coefficient of Variation 14.4 % (11.5-14.5); RDW Standard Deviation 51.7 fL (36.4-46.3); Red Blood Count 3.64 M/uL (4.7-6.1); White Blood Count 4.24 K/uL (4.8-10.8)
[2019-09-13 06:42] LABS: Mean Corpuscular Hgb Conc 33.2 g/dL (32-36)
[2019-09-13 07:51] LABS: Folate (Folic Acid) 14.47 ng/ml (>5.38)
[2019-09-13] MEDS: LACTATED RINGER'S 1,000 ML IV SCH ×2 (08:15→20:11)
[2019-09-13] MEDS: QUETIAPINE FUMARATE 25 MG TABLET PO SCH ×2 (09:49→20:14)
[2019-09-13] MEDS: GABAPENTIN 400 MG CAP PO SCH ×3 (09:49→20:12)
[2019-09-13] MEDS: VENLAFAXINE HCL XR 75 MG CAPXR PO SCH (09:49)
[2019-09-13] MEDS: MULTIVITAMIN TAB PO SCH (09:49)
[2019-09-13] MEDS: CYANOCOBALAMIN 500 MCG TABLET (VITAMIN B-12) PO SCH (09:49)
[2019-09-13] MEDS: TAMSULOSIN HCL 0.4 MG CAP PO SCH ×2 (09:50→20:13)
[2019-09-13] MEDS: PANTOprazole 40 MG TAB PO SCH ×2 (09:50→20:13)
[2019-09-13] MEDS: FOLIC ACID 1 MG TAB PO SCH (09:50)
[2019-09-13] MEDS: FERROUS SULFATE 325 MG TAB PO SCH ×2 (09:50→20:13)
[2019-09-13] MEDS: DICYCLOMINE HCL 10 MG CAP PO SCH ×2 (09:50→20:14)
[2019-09-13] MEDS: SUCRALFATE 1 GM TAB PO SCH ×4 (09:50→20:12)
[2019-09-13] MEDS: ASCORBIC ACID 500 MG TAB PO SCH (09:51)
[2019-09-13] MEDS: THIAMINE HCL 100 MG TAB PO SCH (09:51)
[2019-09-13] MEDS: LIDOCAINE 5% 1 PATCH TD SCH (09:51)
[2019-09-13] MEDS: allopurinoL 100 MG TAB PO SCH (09:52)
[2019-09-13] MEDS: CALCIUM 600MG + VIT D 400 IU TAB PO SCH ×2 (09:52→20:12)
[2019-09-13] MEDS: LORazepam 2 MG/4 ML VIAL IV PRN ×2 (10:09→12:06)
--- NOTE | 2019-09-13 15:24 | Hospitalist Progress Note ---
Date of Service September 13, 2019 Assessment & Plan (1) Alcohol abuse: Continue CIWA protocol continue thiamine and folic acid. Continue pantoprazole 40 mg p.o. twice daily .Continue gabapentin 400 mg p.o. 3 times daily. Recommended alcohol cessation and joining AA. Patient to avoid overse dation but he keep patient withdrawal symptoms under control. Present on Admission?: Yes (2) Fracture of rib: Continue monitoring. Present on Admission?: Yes (3) PE (pulmonary thromboembolism): Continue Xarelto Present on Admission?: Yes (4) Prostate cancer: Continue monitoring for bleeding or urinary obstructions Present on Admission?: Yes (5) Gout: Continue home dose of allopurinol Present on Admission?: Yes Subjective Patient seen and examined at the bedside. No acute events overnight resting in the bed comfortably. Afebrile. Patient continues to be in alcohol withdrawal. Continue CIWA protocol. Patient denies fever chills chest pain hallucinations tremors shortness of breath frequency urgency hematuria hemoptysis and dysuria. Review of Systems Review of Systems: All systems reviewed & are unremarkable except as noted in HPI & below Physical Exam Constitutional: WD/WN, vitals as above well developed Eyes: PERRL, conjunctivae normal, anicteric sclerae ENMT: external ear and nose normal, oropharynx normal Neck: trachea midline, no thyromegaly Respiratory: normal respiratory effort, lungs clear to auscultation Cardiovascular: Rate/Rhythm: + tachycardic Heart Sounds: normal S1 and normal S2 Gastrointestinal (Abdomen): normal bowel sounds, soft, nontender, no hepatosplenomegaly Musculoskeletal: no cyanosis or clubbing, extremities motor strength 5/5 Neurologic: patellar DTR's 2+ bilat, sensation intact Psychiatric: A+Ox3, euthymic affect Lymphatic: no cervical or axillary lymphadenopathy Results & Data Vital Signs (Past 12 Hours) Vital Signs Temp Pulse Resp BP Pulse Ox 09/13/19 12:04 36.3 C L 143 H 20 124/82 95 09/13/19 10:01 110 H 96 09/13/19 07:25 36.5 C 99 H 20 135/95 95 09/13/19 03:18 36.5 C 108 H 18 136/92 93 PG Care Time/CCT Total # of Minutes Spent Total Time Spent with Patient: Total time spent is greater than 50% in coordination of care (as documented) at patient's floor/unit and/or counseling patient: (1) Fracture of rib Encounter type: initial encounter Fracture type: closed Laterality: left Rib fracture type: single rib Qualified Code(s): S22.32XA - Fracture of one rib, left side, initial encounter for closed fracture
[2019-09-13] MEDS: RIVAROXABAN 20 MG TAB PO SCH (16:49)
[2019-09-13] MEDS: LORazepam 3 MG/6 ML VIAL IV PRN (16:50)
[2019-09-13] MEDS: QUETIAPINE FUMARATE 200 MG TAB PO SCH (20:12)
[2019-09-14] MEDS: chlordiazePOXIDE HCl 25 MG CAP PO SCH ×3 (04:00→20:19)
[2019-09-14] MEDS: OXYCODONE/ACETAMINOPHEN 5mg/325mg TAB PO PRN ×2 (05:42→12:21)
[2019-09-14 07:22] LABS: 7-Aminoclonaz, Confirm NEGATIVE NG/ML (CUTOFF=25); Codeine Urine NEGATIVE NG/ML (CUTOFF=50); Hydro-Alp Ur, GC/MS NEGATIVE NG/ML (CUTOFF=25); Hydrocodone Urine 167 NG/ML (CUTOFF=50); Hydromor Urine NEGATIVE NG/ML (CUTOFF=50); Hydroxyethylflurazepam, Conf NEGATIVE NG/ML (CUTOFF=50); Hydroxytriazolam NEGATIVE NG/ML (CUTOFF=50); Lorazepam, Ur GC/MS 1420 NG/ML (CUTOFF=50); Morphine Urine 10900 NG/ML (CUTOFF=50); Nordiazepam, Confirm NEGATIVE NG/ML (CUTOFF=50); Norhydrocodone Conf Ur NEGATIVE NG/ML (CUTOFF=50); Noroxycodone Urine NEGATIVE NG/ML (CUTOFF=50); Oxazepam Ur, GC/MS NEGATIVE NG/ML (CUTOFF=50); Oxycodone Urine NEGATIVE NG/ML (CUTOFF=50); Oxymorph Urine NEGATIVE NG/ML (CUTOFF=50); Temazepam, Confirm NEGATIVE NG/ML (CUTOFF=50)
[2019-09-14] MEDS: CYANOCOBALAMIN 500 MCG TABLET (VITAMIN B-12) PO SCH (07:51)
[2019-09-14] MEDS: LACTATED RINGER'S 1,000 ML IV SCH ×2 (07:51→14:43)
[2019-09-14] MEDS: CALCIUM 600MG + VIT D 400 IU TAB PO SCH ×2 (07:51→20:20)
[2019-09-14] MEDS: FERROUS SULFATE 325 MG TAB PO SCH ×2 (07:52→20:21)
[2019-09-14] MEDS: TAMSULOSIN HCL 0.4 MG CAP PO SCH ×2 (07:52→20:21)
[2019-09-14] MEDS: MULTIVITAMIN TAB PO SCH (07:52)
[2019-09-14] MEDS: FOLIC ACID 1 MG TAB PO SCH (07:54)
[2019-09-14] MEDS: allopurinoL 100 MG TAB PO SCH (07:54)
[2019-09-14] MEDS: GABAPENTIN 400 MG CAP PO SCH ×3 (07:55→20:20)
[2019-09-14] MEDS: THIAMINE HCL 100 MG TAB PO SCH (07:55)
[2019-09-14] MEDS: VENLAFAXINE HCL XR 75 MG CAPXR PO SCH (07:56)
[2019-09-14] MEDS: SUCRALFATE 1 GM TAB PO SCH ×4 (07:56→20:21)
[2019-09-14] MEDS: ASCORBIC ACID 500 MG TAB PO SCH (07:57)
[2019-09-14] MEDS: LIDOCAINE 5% 1 PATCH TD SCH (07:57)
[2019-09-14] MEDS: PANTOprazole 40 MG TAB PO SCH ×2 (07:57→20:23)
[2019-09-14] MEDS: QUETIAPINE FUMARATE 25 MG TABLET PO SCH ×2 (07:58→20:22)
[2019-09-14] MEDS: DICYCLOMINE HCL 10 MG CAP PO SCH ×2 (07:58→20:20)
[2019-09-14] MEDS ORDERED: fentaNYL 25 MCG/HR TDSY TD SCH (15:30)
[2019-09-14] MEDS: CHECK FENTANYL PATCH PLACEMENT SCH (16:18)
[2019-09-14] MEDS: RIVAROXABAN 20 MG TAB PO SCH (16:47)
--- NOTE | 2019-09-14 19:08 | Hospitalist Progress Note ---
Date of Service September 14, 2019 Assessment & Plan (1) Alcohol abuse: Continue CIWA protocol continue thiamine and folic acid. Continue pantoprazole 40 mg p.o. twice daily .Continue gabapentin 400 mg p.o. 3 times daily. Recommended alcohol cessation and joining AA. Patient to avoid overse dation but he keep patient withdrawal symptoms under control. (2) Fracture of rib: Continue monitoring. (3) PE (pulmonary thromboembolism): Continue Xarelto (4) Prostate cancer: Continue monitoring for bleeding or urinary obstructions (5) Gout: Continue home dose of allopurinol Subjective Patient seen and examined at the bedside. No acute events overnight resting in the bed comfortably. Afebrile. Patient continues to be in alcohol withdrawal. Continue CIWA protocol. Patient denies fever chills chest pain hallucinations tremors shortness of breath frequency urgency hematuria hemoptysis and dysuria. Review of Systems Review of Systems: All systems reviewed & are unremarkable except as noted in HPI & below Physical Exam Constitutional: WD/WN, vitals as above well developed Eyes: PERRL, conjunctivae normal, anicteric sclerae ENMT: external ear and nose normal, oropharynx normal Neck: trachea midline, no thyromegaly Respiratory: normal respiratory effort, lungs clear to auscultation Cardiovascular: Rate/Rhythm: + tachycardic Heart Sounds: normal S1 and normal S2 Gastrointestinal (Abdomen): normal bowel sounds, soft, nontender, no hepatosplenomegaly Musculoskeletal: no cyanosis or clubbing, extremities motor strength 5/5 Neurologic: patellar DTR's 2+ bilat, sensation intact Psychiatric: A+Ox3, euthymic affect Lymphatic: no cervical or axillary lymphadenopathy Results & Data Vital Signs (Past 12 Hours) Vital Signs Temp Pulse Pulse Resp BP BP Pulse Ox 09/14/19 16:53 107 H 09/14/19 15:18 36.9 C 109 H 19 127/83 96 09/14/19 10:54 36.5 C 112 H 20 119/85 91 09/14/19 08:11 36.5 C 09/14/19 07:27 37 C 110 H 22 123/88 95 PG Care Time/CCT Total # of Minutes Spent Total Time Spent with Patient: Total time spent is greater than 50% in coordination of care (as documented) at patient's floor/unit and/or counseling patient: (1) Fracture of rib Encounter type: initial encounter Fracture type: closed Laterality: left Rib fracture type: single rib Qualified Code(s): S22.32XA - Fracture of one rib, left side, initial encounter for closed fracture
[2019-09-14] MEDS: SODIUM CHLORIDE 0.9% 1000ML 1,000 ML IV SCH (20:18)
[2019-09-14] MEDS: QUETIAPINE FUMARATE 200 MG TAB PO SCH (20:22)
[2019-09-14] MEDS ORDERED: ACETAMINOPHEN 325 MG TAB PO PRN (23:32)
[2019-09-15] MEDS: CHECK FENTANYL PATCH PLACEMENT SCH (00:10)
[2019-09-15] MEDS ORDERED: ACETAMINOPHEN 1,000 MG/100 ML VIAL IV STA (00:16)
[2019-09-15 02:02] LABS: Appearance Urine Clear (Clear); Bilirubin Urine Negative (Negative); Blood Urine Negative (Negative); Color Urine Yellow; Glucose Urine UA Negative (Negative); Ketones Urine Negative (Negative); Leukocyte Esterase Urine Negative (Negative); Nitrite Urine Negative (Negative); Protein Urine Negative (Negative); Specific Gravity Urine 1.012 (1.000-1.030); Urobilinogen Urine Negative (Negative)
[2019-09-15] MEDS: chlordiazePOXIDE HCl 25 MG CAP PO SCH (04:24)
[2019-09-15 06:00] LABS: Basophils # (auto) 0.01 K/uL (0-0.2); Basophils % (auto) 0.1 %; Eosinophils # (auto) 0.46 K/uL (0-0.5); Eosinophils % (auto) 6.9 %; Hematocrit (blood only) 34.8 % (42-52); Hemoglobin 11.5 g/dL (14.0-18.0); Immature Granulocytes # (auto) 0.03 K/uL (0.00-0.02); Immature Granulocytes % (auto) 0.4 %; Lymphocytes # (auto) 0.85 K/uL (1.2-3.4); Lymphocytes % (auto) 12.7 %; Mean Corpuscular Hemoglobin 33.3 pg (25-34); Mean Corpuscular Volume 100.9 fL (80-100); Monocytes # (auto) 0.63 K/uL (0.11-0.59); Monocytes % (auto) 9.4 %; Neutrophils % (auto) 70.5 %; Platelet Count 101 K/uL (130-400); RDW Coefficient of Variation 14.5 % (11.5-14.5); RDW Standard Deviation 53.3 fL (36.4-46.3); Red Blood Count 3.45 M/uL (4.7-6.1); White Blood Count 6.68 K/uL (4.8-10.8)
[2019-09-15 06:17] LABS: Albumin Level 2.5 gm/dl (3.4-5.0); BUN Creatinine Ratio 19.1 (10-20); Calcium 8.7 mg/dl (8.5-10.1); Creatinine Clr Calc Pharmacy 120.6 ml/min; Est GFR (African American) 124.1; Est GFR (Non-African American) 107.1; Potassium 3.6 mmol/L (3.5-5.1)
[2019-09-15 06:22] LABS: Albumin Globulin Ratio 0.8 (0.9-2); Bilirubin,Total 0.5 mg/dl (0.2-1); Globulin 3.1 gm/dl (2.5-4.0); Total Protein 5.6 gm/dl (6.4-8.2)
[2019-09-15] MEDS: GABAPENTIN 300 MG CAP PO SCH ×3 (08:07→20:30)
[2019-09-15] MEDS: VENLAFAXINE HCL XR 75 MG CAPXR PO SCH (08:10)
[2019-09-15] MEDS: SODIUM CHLORIDE 0.9% 1000ML 1,000 ML IV SCH ×2 (09:00→21:08)
[2019-09-15] MEDS: SUCRALFATE 1 GM TAB PO SCH ×4 (09:01→20:28)
[2019-09-15] MEDS: DICYCLOMINE HCL 10 MG CAP PO SCH ×2 (09:01→20:28)
[2019-09-15] MEDS: CALCIUM 600MG + VIT D 400 IU TAB PO SCH ×2 (09:01→21:07)
[2019-09-15] MEDS: FERROUS SULFATE 325 MG TAB PO SCH ×2 (09:01→20:29)
[2019-09-15] MEDS: ASCORBIC ACID 500 MG TAB PO SCH (09:02)
[2019-09-15] MEDS: allopurinoL 100 MG TAB PO SCH ×2 (09:02→16:51)
[2019-09-15] MEDS: PANTOprazole 40 MG TAB PO SCH ×2 (09:02→20:30)
[2019-09-15] MEDS: FOLIC ACID 1 MG TAB PO SCH (09:02)
[2019-09-15] MEDS: CYANOCOBALAMIN 500 MCG TABLET (VITAMIN B-12) PO SCH (09:02)
[2019-09-15] MEDS: MULTIVITAMIN TAB PO SCH (09:02)
[2019-09-15] MEDS: TAMSULOSIN HCL 0.4 MG CAP PO SCH ×2 (09:02→20:29)
[2019-09-15] MEDS: THIAMINE HCL 100 MG TAB PO SCH (09:02)
[2019-09-15] MEDS: LIDOCAINE 5% 1 PATCH TD SCH (10:40)
--- NOTE | 2019-09-15 10:40 | Hospitalist Progress Note ---
Date of Service September 15, 2019 Assessment & Plan (1) Alcohol abuse: Severe withdrawal. Tachycardic. On occasion very sedated. Continue CIWA protocol continue thiamine and folic acid. Continue pantoprazole 40 mg p.o. twice daily .Hold gabapentin 400 mg p.o. 3 times daily today and taper down when patient more alert. Recommended alcohol cessation and joining AA. Patient to avoid oversedation but he keep patient withdrawal symptoms under control. (2) Fracture of rib: Complains of constant pain. We will repeat x-rays. Continue monitoring. Patient requested morphine IV for pain. (3) PE (pulmonary thromboembolism): Continue Xarelto (4) Prostate cancer: Continue monitoring for bleeding or urinary obstructions. Complains of constant pain. Continue pain management. (5) Gout: Continue home dose of allopurinol Subjective Patient seen and examined at the bedside. Afebrile. Patient continues to be in severe alcohol withdrawal. Patient is poor historian, most of the time complains of pain in his right chest. Last night he was severely affected by w ithdrawal and his heart rate is in the range of 100 -143. Continue monitoring and CIWA protocol. Patient denies fever chills chest pain hallucinations tremors shortness of breath frequency urgency hematuria hemoptysis and dysuria. Complains of pain in his right sided ribs and painful urination. Review of Systems Review of Systems: All systems reviewed & are unremarkable except as noted in HPI & below Physical Exam Constitutional: WD/WN, vitals as above well developed Eyes: PERRL, conjunctivae normal, anicteric sclerae ENMT: external ear and nose normal, oropharynx normal Neck: trachea midline, no thyromegaly Respiratory: normal respiratory effort, lungs clear to auscultation Cardiovascular: Rate/Rhythm: + tachycardic Heart Sounds: normal S1 and normal S2 Gastrointestinal (Abdomen): normal bowel sounds, soft, nontender, no hepatosplenomegaly Musculoskeletal: no cyanosis or clubbing, extremities motor strength 5/5 Right-sided rib pain. Neurologic: patellar DTR's 2+ bilat, sensation intact Psychiatric: A+Ox3, euthymic affect Lymphatic: no cervical or axillary lymphadenopathy Results & Data Vital Signs (Past 12 Hours) Vital Signs Temp Pulse Pulse Resp BP BP Pulse Ox 09/15/19 07:34 36.4 C L 106 H 10 L 103/74 92 09/15/19 06:17 112 H 8 L 94 09/15/19 04:21 36.5 C 120 H 10 L 107/76 92 09/15/19 04:00 9 L 09/15/19 00:00 128 H 09/14/19 22:48 37.6 C H 129 H 19 109/76 90 PG Care Time/CCT Total # of Minutes Spent Total Time Spent with Patient: Total time spent is greater than 50% in coordination of care (as documented) at patient's floor/unit and/or counseling patient: (1) Fracture of rib Encounter type: initial encounter Fracture type: closed Laterality: left Rib fracture type: single rib Qualified Code(s): S22.32XA - Fracture of one rib, left side, initial encounter for closed fracture
[2019-09-15] MEDS ORDERED: MoRPHine SULFATE 2 MG/ML CARP IV PRN ×2 (10:58→14:58)
--- NOTE | 2019-09-15 11:58 | XRay Report ---
XR ribs RT min 3V w CXR1V CLINICAL HISTORY: Right rib pain. Recent fall. COMPARISON: Chest radiograph and chest CT September 11, 2019. FINDINGS: Lung volumes are diminished. Mild bibasilar opacities favor atelectasis. There is no conso lidation to suggest pneumonia. No pneumothorax is present. The nondisplaced posterior right ninth rib fracture is better depicted on the CT of September 11, 2019. No evidence for pulmonary edema. Cardiac size is normal. IMPRESSION: 1. No pneumothorax. 2. The acute nondisplaced posterior right ninth rib fracture is better depicted on CT of September 11, 2019. 3. Low lung volumes with suspected bibasilar atelectasis. Electronically signed by: German Braswell M.D. 09/15/2019 11:57 AM
[2019-09-15] MEDS: MoRPHine SULFATE 2 MG/ML CARP IV PRN ×2 (15:12→18:23)
[2019-09-15] MEDS: RIVAROXABAN 20 MG TAB PO SCH (16:50)
[2019-09-15] MEDS: OXYCODONE/ACETAMINOPHEN 5mg/325mg TAB PO PRN (16:53)
[2019-09-15] MEDS ORDERED: Nursing to Pharmacy Communication ONE (18:22)
[2019-09-15] MEDS: QUETIAPINE FUMARATE 100 MG TABLET PO SCH (20:29)
[2019-09-15] MEDS ORDERED: QUETIAPINE FUMARATE 200 MG TAB PO SCH (21:00)
[2019-09-16] MEDS: MoRPHine SULFATE 2 MG/ML CARP IV PRN ×3 (01:58→23:30)
[2019-09-16 06:16] LABS: Basophils # (auto) 0.01 K/uL (0-0.2); Basophils % (auto) 0.2 %; Eosinophils # (auto) 0.43 K/uL (0-0.5); Eosinophils % (auto) 9.1 %; Hematocrit (blood only) 32.2 % (42-52); Hemoglobin 10.6 g/dL (14.0-18.0); Immature Granulocytes # (auto) 0.03 K/uL (0.00-0.02); Immature Granulocytes % (auto) 0.6 %; Lymphocytes # (auto) 0.86 K/uL (1.2-3.4); Lymphocytes % (auto) 18.2 %; Mean Corpuscular Hemoglobin 33.1 pg (25-34); Mean Corpuscular Hgb Conc 32.9 g/dL (32-36); Mean Corpuscular Volume 100.6 fL (80-100); Mean Platelet Volume 10.9 fL (7.4-10.4); Monocytes # (auto) 0.52 K/uL (0.11-0.59); Neutrophils # (auto) 2.88 K/uL (1.4-6.5); Neutrophils % (auto) 60.9 %; Platelet Count 114 K/uL (130-400); RDW Coefficient of Variation 14.2 % (11.5-14.5); RDW Standard Deviation 52.1 fL (36.4-46.3); White Blood Count 4.73 K/uL (4.8-10.8)
[2019-09-16] MEDS: OXYCODONE/ACETAMINOPHEN 5mg/325mg TAB PO PRN (06:39)
[2019-09-16 06:49] LABS: Albumin Level 2.2 gm/dl (3.4-5.0); BUN Creatinine Ratio 15.6 (10-20); Calcium 8.4 mg/dl (8.5-10.1); Creatinine Clr Calc Pharmacy 124.6 ml/min; Est GFR (African American) 125.8; Est GFR (Non-African American) 108.5; Potassium 3.8 mmol/L (3.5-5.1)
[2019-09-16 06:51] LABS: Albumin Globulin Ratio 0.8 (0.9-2); Bilirubin,Total 0.3 mg/dl (0.2-1); Globulin 2.9 gm/dl (2.5-4.0); Total Protein 5.1 gm/dl (6.4-8.2)
[2019-09-16] MEDS: SUCRALFATE 1 GM TAB PO SCH ×4 (07:50→20:56)
[2019-09-16] MEDS: SODIUM CHLORIDE 0.9% 1000ML 1,000 ML IV SCH ×2 (07:51→19:15)
[2019-09-16] MEDS: VENLAFAXINE HCL XR 75 MG CAPXR PO SCH (07:52)
[2019-09-16] MEDS: DICYCLOMINE HCL 10 MG CAP PO SCH ×2 (07:52→20:56)
[2019-09-16] MEDS: CALCIUM 600MG + VIT D 400 IU TAB PO SCH ×2 (07:52→20:57)
[2019-09-16] MEDS: FOLIC ACID 1 MG TAB PO SCH (07:53)
[2019-09-16] MEDS: FERROUS SULFATE 325 MG TAB PO SCH ×2 (07:53→20:56)
[2019-09-16] MEDS: LIDOCAINE 5% 1 PATCH TD SCH (07:53)
[2019-09-16] MEDS: TAMSULOSIN HCL 0.4 MG CAP PO SCH ×2 (07:53→20:56)
[2019-09-16] MEDS: THIAMINE HCL 100 MG TAB PO SCH (07:54)
[2019-09-16] MEDS: GABAPENTIN 300 MG CAP PO SCH ×3 (07:54→20:56)
[2019-09-16] MEDS: PANTOprazole 40 MG TAB PO SCH ×2 (07:54→20:56)
[2019-09-16] MEDS: MULTIVITAMIN TAB PO SCH (07:54)
[2019-09-16] MEDS: ASCORBIC ACID 500 MG TAB PO SCH (07:55)
[2019-09-16] MEDS: allopurinoL 100 MG TAB PO SCH (07:55)
[2019-09-16] MEDS: CYANOCOBALAMIN 500 MCG TABLET (VITAMIN B-12) PO SCH (07:55)
[2019-09-16] MEDS ORDERED: MoRPHine SULFATE 2 MG/ML CARP IV PRN (08:36)
[2019-09-16] MEDS: OXYCODONE HCL IR 5 MG TAB (IMMEDIATE RELEASE) PO PRN ×2 (09:09→15:02)
[2019-09-16] MEDS: BACLOFEN 10 MG TAB PO SCH ×3 (09:09→20:56)
[2019-09-16] MEDS: QUETIAPINE FUMARATE 25 MG TABLET PO SCH ×2 (09:10→20:56)
[2019-09-16] MEDS ORDERED: NALOXONE HCL 0.4 MG/1 ML VIAL/CARP IV PRN (15:57)
[2019-09-16] MEDS ORDERED: MORPHINE SULFATE PCA 30 MG/30 ML IV PRN (15:59)
[2019-09-16] MEDS ORDERED: SODIUM CHLORIDE 0.9% 1000ML 1,000 ML IV SCH (16:00)
--- NOTE | 2019-09-16 16:00 | Hospitalist Progress Note ---
Date of Service September 16, 2019 Assessment & Plan (1) Alcohol abuse: Severe withdrawal. Tachycardic. On occasion very sedated. Continue CIWA protocol continue thiamine and folic acid. Continue pantoprazole 40 mg p.o. twice daily .continue tapering off of gabapentin since patient now more alert. Started BIOLOGICAL LAB TECHNICIAN pump until patient sees the pain medicine. Possibly nerve block with help. Continue ketorolac 15 mg every 6 hours IV as needed for pain. Continue Seroquel 50 mg twice daily and 100 nightly since patient tolerated this better and is less sedated. Waiting for pain medicine recommendations and instructions for further pain management. Recommended alcohol cessation and joining AA. Patient to avoid oversedation but he keep patient withdrawal symptoms under control. (2) Fracture of rib: Complains of constant pain. Repeated x-rays no significant change. Continue monitoring. Due to patient asked visit pain in the right chest most probably related to the rib fracture we had to start BIOLOGICAL LAB TECHNICIAN pump until we have recommendations from pain specialist. (3) PE (pulmonary thromboembolism): Continue Xarelto (4) Prostate cancer: Continue monitoring for bleeding or urinary obstructions. Complains of constant pain. Continue pain management. (5) Gout: Continue home dose of allopurinol Subjective Patient seen and examined at the bedside. Afebrile. Patient continues to be in severe alcohol withdrawal. Patient is more alert and oriented today. He states that he goes to [facility] where he is treated for pain management and that he had previously blocks done by Dr.Mark Cantor. Patient claimed that he does not drink alcohol because he does not have money for it. He states that he fell several months ago and he believes that rib fracture on his right side is since that fall. Patient said that when he went to [facility] he was given 4 mg of morphine every 2 hours and that this is controlling his pain on the right side properly. Patient said that oxycodone immediate release or Percocet does not help him at all. Patient also said that he was scheduled to be seen in [facility] by urology for prostate cancer. And that they need to first evaluate him for the further procedure that was already discussed with him. Since patient was in severe withdrawal while and extremely somnolent in the past several days we had to start tapering him of gabapentin. He is right now on 300 mg of gabapentin 3 times a day. We also had to decrease the dose of Seroquel from 200 mg at night 100 milligrams at night and 50 twice daily during the day because patient was found 2 nights ago almost obtunded and extremely somnolent. Patient continues to be in severe alcohol withdrawal and his heart rate is in the range of 100 -143. Continue monitoring and CIWA protocol. Patient denies fever chills chest pain hallucinations tremors shortness of breath frequency urgency hematuria hemoptysis and dysuria. Complains of pain in his right sided ribs and painful urination. Review of Systems Review of Systems: All systems reviewed & are unremarkable except as noted in HPI & below Physical Exam Constitutional: WD/WN, vitals as above well developed Eyes: PERRL, conjunctivae normal, anicteric sclerae ENMT: external ear and nose normal, oropharynx normal Neck: trachea midline, no thyromegaly Respiratory: normal respiratory effort, lungs clear to auscultation Cardiovascular: Rate/Rhythm: + tachycardic Heart Sounds: normal S1 and normal S2 Gastrointestinal (Abdomen): normal bowel sounds, soft, nontender, no hepatosplenomegaly Musculoskeletal: no cyanosis or clubbing, extremities motor strength 5/5 Neurologic: patellar DTR's 2+ bilat, sensation intact Psychiatric: A+Ox3, euthymic affect Lymphatic: no cervical or axillary lymphadenopathy Results & Data Vital Signs (Past 12 Hours) Vital Signs Temp Pulse Resp BP BP Pulse Ox 09/16/19 11:24 36.6 C 104 H 17 124/84 92 09/16/19 07:57 36.8 C 95 H 18 149/96 H 95 09/16/19 04:21 36.3 C L 101 H 19 131/84 93 PG Care Time/CCT Total # of Minutes Spent Total Time Spent with Patient: Total time spent is greater than 50% in coordination of care (as documented) at patient's floor/unit and/or counseling patient: (1) Fracture of rib Encounter type: initial encounter Fracture type: closed Laterality: left Rib fracture type: single rib Qualified Code(s): S22.32XA - Fracture of one rib, left side, initial encounter for closed fracture
[2019-09-16] MEDS: RIVAROXABAN 20 MG TAB PO SCH (16:44)
[2019-09-16] MEDS: QUETIAPINE FUMARATE 100 MG TABLET PO SCH (20:56)
--- NOTE | 2019-09-17 00:08 | Urology Consultation ---
Date of Consultation September 17, 2019 Assessment & Plan (1) Alcohol abuse: Continue to treat alcohol intox Check PSA Can f/u as outpt to further discuss prostate ca care Continue Flomax (2) Prostate cancer: History of Present Illness Attending Physician: Flavio Bernal MD 59 y/o male admitted with alcohol intoxication and a complex past medical history. The patient is a very poor historian. According to the medical record his has a history of Prostate Ca and BPH. He was due to see [facility] to further discuss his care for prostate ca but at this time is unable to give me any more details. Allergies Allergy/AdvReac Type Severity Reaction Status Date / Time Iodinated Contrast Media Allergy Anaphylaxis Verified 09/15/19 15:01 shrimp Allergy Anaphylaxis Unverified 09/11/19 23:33 aspirin AdvReac Tachycardia Unverified 09/11/19 23:34 Home Medications Home Medications Medication Instructions Recorded Confirmed Type Nifedipine Rectal Oint 0.2 % PA BID 09/11/19 09/11/19 History allopurinol 100 mg PO DAILY 09/11/19 09/11/19 History ascorbic acid (vitamin C) 500 mg PO DAILY 09/11/19 09/11/19 History calcium citrate-vitamin D3 1 tab PO BID 09/11/19 09/11/19 History [Citracal + D Petites] cyanocobalamin (vitamin B-12) 1,000 mcg PO DAILY 09/11/19 09/11/19 History cyclobenzaprine 10 mg PO TID PRN 09/11/19 09/11/19 History dicyclomine 10 mg PO BID 09/11/19 09/11/19 History ferrous sulfate 325 mg PO BID 09/11/19 09/11/19 History folic acid 1 mg PO DAILY 09/11/19 09/11/19 History gabapentin 400 mg PO TID 09/11/19 09/11/19 History hydroxyzine pamoate [Vistaril] 25 mg PO QID PRN 09/11/19 09/11/19 History lorazepam 0.5 mg PO TID PRN MDD 3 TAB 09/11/19 09/11/19 History multivitamin [Multiple Vitamins] 1 tab PO DAILY 09/11/19 09/11/19 History ondansetron 4 mg PO Q6H PRN 09/11/19 09/11/19 History oxybutynin chloride 10 mg PO DAILY 09/11/19 09/11/19 History oxycodone-acetaminophen 1 tab PO Q6H PRN MDD 4 TAB 09/11/19 09/11/19 History pantoprazole 40 mg PO BID 09/11/19 09/11/19 History quetiapine 50 mg PO BID 09/11/19 09/11/19 History quetiapine 200 mg PO HS 09/11/19 09/11/19 History rivaroxaban 20 mg PO QDD 09/11/19 09/11/19 History sucralfate 1 g PO QID 09/11/19 09/11/19 History tamsulosin 0.4 mg PO BID 09/11/19 09/11/19 History thiamine HCl (vitamin B1) 100 mg PO DAILY 09/11/19 09/11/19 History venlafaxine 75 mg PO DAILY 09/11/19 09/11/19 History Patient History Medical History Alcoholism CA (myocardial infarction) PE (pulmonary thromboembolism) Prostate cancer Surgical History History of abdominal surgery History of intestinal surgery Social History Preferred Language: [place] Communication Ability: Impaired Osteopathic Resident Required: No Beliefs That Will Affect Care: None Current Living Situation: Homeless Current Living Situation Comment: homeless Other Information That Helps Us Care for You: No Feels Safe at Home: No Is there a partner from a previous relationship who is making you feel unsafe now?: No Any Concerns about Your Family Situation: No Would You Like to Speak to Someone About Your Situation: No Safety Concerns: Feels Safe At This Time Smoking Status: Current every day smoker Tobacco Type: cigarettes ; Cigarettes Per Day: 20 ; Hx Alcohol Use: Yes Alcohol type: hard liquor Hx Substance Use: No Review of Systems Review of Systems: All systems reviewed & are unremarkable except as noted in HPI & below Physical Exam Constitutional: WD/WN, vitals as above + intoxicated appearing Eyes: PERRL, conjunctivae normal, anicteric sclerae Respiratory: normal respiratory effort, lungs clear to auscultation Cardiovascular: RRR, no murmur, no edema Psychiatric: Eye Contact: + poor eye contact Mood: + depressed mood Results & Data Vital Signs (Past 12 Hours) Vital Signs Temp Pulse Pulse Resp BP Pulse Ox 09/16/19 23:51 100 H 09/16/19 21:04 36.7 C 102 H 21 130/84 100 09/16/19 19:42 36.6 C 88 16 151/91 H 98 09/16/19 18:52 36.5 C 94 H 16 144/90 H 99 09/16/19 18:46 103 H 15 141/91 H 98 09/16/19 17:45 101 H 14 133/91 96 09/16/19 15:26 36.4 C L 107 H 23 121/73 95
[2019-09-17] MEDS: LORazepam 2 MG/4 ML VIAL IV PRN (00:48)
[2019-09-17] MEDS: SUCRALFATE 1 GM TAB PO SCH ×4 (08:56→20:53)
[2019-09-17] MEDS: MULTIVITAMIN TAB PO SCH (08:56)
[2019-09-17] MEDS: DICYCLOMINE HCL 10 MG CAP PO SCH ×2 (08:56→20:54)
[2019-09-17] MEDS: VENLAFAXINE HCL XR 75 MG CAPXR PO SCH (08:56)
[2019-09-17] MEDS: LIDOCAINE 5% 1 PATCH TD SCH (08:56)
[2019-09-17] MEDS: ASCORBIC ACID 500 MG TAB PO SCH (08:57)
[2019-09-17] MEDS: FOLIC ACID 1 MG TAB PO SCH (08:57)
[2019-09-17] MEDS: THIAMINE HCL 100 MG TAB PO SCH (08:57)
[2019-09-17] MEDS: allopurinoL 100 MG TAB PO SCH (08:57)
[2019-09-17] MEDS: CALCIUM 600MG + VIT D 400 IU TAB PO SCH ×2 (08:57→20:53)
[2019-09-17] MEDS: QUETIAPINE FUMARATE 25 MG TABLET PO SCH ×2 (08:57→20:53)
[2019-09-17] MEDS: TAMSULOSIN HCL 0.4 MG CAP PO SCH ×2 (08:58→20:53)
[2019-09-17] MEDS: BACLOFEN 10 MG TAB PO SCH ×3 (08:58→20:53)
[2019-09-17] MEDS: GABAPENTIN 300 MG CAP PO SCH ×3 (08:58→20:53)
[2019-09-17] MEDS: FERROUS SULFATE 325 MG TAB PO SCH ×2 (08:58→20:54)
[2019-09-17] MEDS: CYANOCOBALAMIN 500 MCG TABLET (VITAMIN B-12) PO SCH (08:58)
[2019-09-17] MEDS: PANTOprazole 40 MG TAB PO SCH ×2 (08:59→20:53)
[2019-09-17 09:58] LABS: Basophils # (auto) 0.01 K/uL (0-0.2); Basophils % (auto) 0.2 %; Eosinophils # (auto) 0.42 K/uL (0-0.5); Hematocrit (blood only) 35.4 % (42-52); Hemoglobin 11.8 g/dL (14.0-18.0); Immature Granulocytes # (auto) 0.03 K/uL (0.00-0.02); Immature Granulocytes % (auto) 0.6 %; Lymphocytes # (auto) 0.68 K/uL (1.2-3.4); Mean Corpuscular Hemoglobin 32.9 pg (25-34); Mean Corpuscular Hgb Conc 33.3 g/dL (32-36); Mean Corpuscular Volume 98.6 fL (80-100); Mean Platelet Volume 9.9 fL (7.4-10.4); Monocytes # (auto) 0.72 K/uL (0.11-0.59); Monocytes % (auto) 13.7 %; Neutrophils # (auto) 3.39 K/uL (1.4-6.5); Neutrophils % (auto) 64.5 %; Platelet Count 165 K/uL (130-400); RDW Coefficient of Variation 14.1 % (11.5-14.5); RDW Standard Deviation 50.5 fL (36.4-46.3); Red Blood Count 3.59 M/uL (4.7-6.1); White Blood Count 5.25 K/uL (4.8-10.8)
[2019-09-17 10:18] LABS: Albumin Level 2.5 gm/dl (3.4-5.0); BUN Creatinine Ratio 18.4 (10-20); Calcium 8.9 mg/dl (8.5-10.1); Creatinine Clr Calc Pharmacy 116.9 ml/min; Est GFR (African American) 122.6; Est GFR (Non-African American) 105.7; Potassium 3.7 mmol/L (3.5-5.1)
[2019-09-17 10:21] LABS: Albumin Globulin Ratio 0.8 (0.9-2); Bilirubin,Total 0.3 mg/dl (0.2-1); Total Protein 5.5 gm/dl (6.4-8.2)
[2019-09-17] MEDS: MoRPHine SULFATE 2 MG/ML CARP IV PRN ×5 (11:27→19:54)
[2019-09-17] MEDS ORDERED: COUGH DROP (SUGAR FREE) LOZ 24 LOZ/1 BOX BUCCAL ONE (11:30)
[2019-09-17] MEDS: RIVAROXABAN 20 MG TAB PO SCH (17:00)
--- NOTE | 2019-09-17 17:01 | Hospitalist Progress Note ---
Date of Service September 17, 2019 Assessment & Plan (1) Alcohol abuse: Severe withdrawal. Tachycardic. On occasion very sedated. Started on SMOG TECHNICIAN pump morphine because of exquisite pleurisy on the right side due to broken ribs. Continue CIWA protocol continue thiamine and folic acid. Continue pantoprazole 40 mg p.o. twice daily .continue tapering off of gabapentin since patient more alert. Possibly nerve block with help. Referred to pain management waiting for their evaluation. Continue ketorolac 15 mg every 6 hours IV as needed for pain. Continue Seroquel 50 mg twice daily and 100 nightly since patient tolerated this better and is less sedated. Waiting for pain medicine recommendations and instructions for further pain management. Recommended alcohol cessation and joining AA. Patient to avoid oversedation but he keep patient withdrawal symptoms under control. (2) Fracture of rib: Continue monitoring. Due to patient asked visit pain in the right chest most probably related to the rib fracture we had to start SMOG TECHNICIAN pump until we have recommendations from pain specialist. (3) PE (pulmonary thromboembolism): Continue Xarelto (4) Prostate cancer: Continue monitoring for bleeding or urinary obstructions. Appreciate urology recommendations : Check PSA Can f/u as outpt to further discuss prostate ca care Continue Flomax.Continue pain management. (5) Gout: Continue home dose of allopurinol Subjective Patient seen and examined at the bedside. Afebrile. Patient continues to be in severe alcohol withdrawal. Patient is more alert and oriented today. Reports that the pain is better controlled with SMOG TECHNICIAN pump. Continue monitoring and CIWA protocol. Patient denies fever chills chest pain hallucinations tremors shortness of breath frequency urgency hematuria hemoptysis and dysuria. Complains of pain in his right sided ribs and painful urination. Review of Systems Review of Systems: All systems reviewed & are unremarkable except as noted in HPI & below Physical Exam Constitutional: WD/WN, vitals as above well developed Eyes: PERRL, conjunctivae normal, anicteric sclerae ENMT: external ear and nose normal, oropharynx normal Neck: trachea midline, no thyromegaly Respiratory: normal respiratory effort, lungs clear to auscultation Cardiovascular: Rate/Rhythm: + tachycardic Heart Sounds: normal S1 and normal S2 Gastrointestinal (Abdomen): normal bowel sounds, soft, nontender, no hepatosplenomegaly Musculoskeletal: no cyanosis or clubbing, extremities motor strength 5/5 Neurologic: patellar DTR's 2+ bilat, sensation intact Psychiatric: A+Ox3, euthymic affect Lymphatic: no cervical or axillary lymphadenopathy Results & Data Vital Signs (Past 12 Hours) Vital Signs Temp Pulse Resp BP BP Pulse Ox 09/17/19 16:00 36.9 C 115 H 18 116/59 L 98 09/17/19 11:53 36.6 C 114 H 20 106/74 94 09/17/19 06:40 36.5 C 98 H 18 121/81 92 PG Care Time/CCT Total # of Minutes Spent Total Time Spent with Patient: Total time spent is greater than 50% in coordination of care (as documented) at patient's floor/unit and/or counseling patient: (1) Fracture of rib Encounter type: initial encounter Fracture type: closed Laterality: left Rib fracture type: single rib Qualified Code(s): S22.32XA - Fracture of one rib, left side, initial encounter for closed fracture
[2019-09-17] MEDS: QUETIAPINE FUMARATE 100 MG TABLET PO SCH (20:53)
[2019-09-17] MEDS ORDERED: QUETIAPINE FUMARATE 25 MG TABLET PO SCH (21:00)
[2019-09-18 05:55] LABS: Basophils # (auto) 0.01 K/uL (0-0.2); Basophils % (auto) 0.2 %; Eosinophils # (auto) 0.36 K/uL (0-0.5); Eosinophils % (auto) 7.3 %; Hematocrit (blood only) 34.8 % (42-52); Hemoglobin 11.8 g/dL (14.0-18.0); Immature Granulocytes # (auto) 0.04 K/uL (0.00-0.02); Immature Granulocytes % (auto) 0.8 %; Lymphocytes % (auto) 16.2 %; Mean Corpuscular Hemoglobin 33.5 pg (25-34); Mean Corpuscular Hgb Conc 33.9 g/dL (32-36); Mean Corpuscular Volume 98.9 fL (80-100); Mean Platelet Volume 10.3 fL (7.4-10.4); Monocytes # (auto) 0.92 K/uL (0.11-0.59); Monocytes % (auto) 18.6 %; Neutrophils # (auto) 2.82 K/uL (1.4-6.5); Neutrophils % (auto) 56.9 %; Platelet Count 205 K/uL (130-400); RDW Coefficient of Variation 14.5 % (11.5-14.5); RDW Standard Deviation 51.8 fL (36.4-46.3); Red Blood Count 3.52 M/uL (4.7-6.1); White Blood Count 4.95 K/uL (4.8-10.8)
[2019-09-18] MEDS: MoRPHine SULFATE 2 MG/ML CARP IV PRN ×6 (06:00→22:38)
[2019-09-18 06:33] LABS: Albumin Level 2.3 gm/dl (3.4-5.0); BUN Creatinine Ratio 20.2 (10-20); Calcium 8.5 mg/dl (8.5-10.1); Creatinine Clr Calc Pharmacy 110.1 ml/min; Est GFR (African American) 119.6; Est GFR (Non-African American) 103.2
[2019-09-18 06:38] LABS: Albumin Globulin Ratio 0.7 (0.9-2); Bilirubin,Total 0.3 mg/dl (0.2-1); Globulin 3.1 gm/dl (2.5-4.0); Prostate Specific Antigen 5.69 ng/ml (0-4); Total Protein 5.4 gm/dl (6.4-8.2)
[2019-09-18] MEDS: CYANOCOBALAMIN 500 MCG TABLET (VITAMIN B-12) PO SCH (08:56)
[2019-09-18] MEDS: MULTIVITAMIN TAB PO SCH (08:56)
[2019-09-18] MEDS: QUETIAPINE FUMARATE 25 MG TABLET PO SCH ×2 (08:56→20:39)
[2019-09-18] MEDS: BACLOFEN 10 MG TAB PO SCH ×3 (08:56→20:38)
[2019-09-18] MEDS: DICYCLOMINE HCL 10 MG CAP PO SCH ×2 (08:56→20:38)
[2019-09-18] MEDS: PANTOprazole 40 MG TAB PO SCH ×2 (08:57→20:39)
[2019-09-18] MEDS: FOLIC ACID 1 MG TAB PO SCH (08:57)
[2019-09-18] MEDS: SUCRALFATE 1 GM TAB PO SCH ×4 (08:57→20:40)
[2019-09-18] MEDS: THIAMINE HCL 100 MG TAB PO SCH (08:58)
[2019-09-18] MEDS: ASCORBIC ACID 500 MG TAB PO SCH (08:58)
[2019-09-18] MEDS: VENLAFAXINE HCL XR 75 MG CAPXR PO SCH (08:58)
[2019-09-18] MEDS: TAMSULOSIN HCL 0.4 MG CAP PO SCH ×2 (08:59→20:40)
[2019-09-18] MEDS: CALCIUM 600MG + VIT D 400 IU TAB PO SCH ×2 (08:59→20:41)
[2019-09-18] MEDS: GABAPENTIN 300 MG CAP PO SCH ×3 (08:59→20:39)
[2019-09-18] MEDS: allopurinoL 100 MG TAB PO SCH (08:59)
[2019-09-18] MEDS: FERROUS SULFATE 325 MG TAB PO SCH ×2 (08:59→21:21)
[2019-09-18] MEDS: LIDOCAINE 5% 1 PATCH TD SCH (09:00)
--- NOTE | 2019-09-18 10:07 | Ultrasound Report ---
US liver CLINICAL HISTORY: Right upper quadrant abdominal pain. COMPARISON STUDY: CT of the abdomen and pelvis September 11, 2019. FINDINGS: Hepatic echogenicity is increased. No hepatic lesions are identified although this exam is compromised by suboptimal penetration. Gallbladder wall is mildly thickened. No gallstones are identi fied. No sonographic Weller sign was reported. The gallbladder is not distended. Pancreas is obscured by overlying bowel gas. Common bile duct is slightly dilated, measuring 7 mm in caliber. There is a 2 cm cyst within upper pole of the right kidney. IMPRESSION: 1. No gallstones. Mild gallbladder wall thickening, a nonspecific finding. The findings do not strong ly suggest acute cholecystitis although a hepatobiliary scan could be obtained as indicated. 2. Fatty liver. 3. Borderline dilatation of the common bile duct which could be correlated with liver function tests . Electronically signed by: German Braswell M.D. 09/18/2019 10:06 AM
--- NOTE | 2019-09-18 10:35 | Pain Management Consultation ---
Date of Consultation September 18, 2019 Assessment & Plan (1) Fracture of rib: 1. The patient is a candidate for right ninth intercostal nerve block however will need to hold Xarelto for 72 hours prior to the nerve block being performed due to risk of bleeding. This block may be performed as an outpatient should the patient have acceptable pain control with oral opiates. Will discuss risk benefit of holding Xarelto with his hospitalist. 2. The patient will need to be n.p.o. after midnight the morning of the procedure. Orders are written. Tentatively plan for 09/21/2019 for procedure date. 3. Patient should follow with his outpatient pain management office after discharge in [place]. 4. PDMP was reviewed and consistent with one prescriber for Percocet 5/325 mg 120 tablets/month. 5. Recommend utilization of Percocet 5/3 25 mg 1 p.o. every 4 as needed pain to minimize pain associated with rib fracture 6. Consider utilization of ISB to minimize atelectasis. 7. Recommend continued wean of gabapentin. Recommend continued utilization of Lidoderm patch. 8. CIWA protocol per hospitalist. 9. Thank you for this consultation. Encounter type: initial encounter Fracture type: closed Laterality: left Rib fracture type: single rib Qualified Code(s): S22.32XA - Fracture of one rib, left side, initial encounter for closed fracture (2) Alcohol abuse: (3) PE (pulmonary thromboembolism): (4) Prostate cancer: (5) Opiate dependence: History of Present Illness Attending Physician: Flavio Bernal MD History of Present Illness 59-year-old male with history of alcohol abuse and alcoholic withdrawal prompting this admission presents with right-sided thoracic pain and known acute right posterior nondisplaced ninth rib fracture. He reports pain is worse with coughing and deep breathing. He denies any trauma as to the etiology of his rib fracture. Patient states his #1 pain complaint is over his right thoracic spine but he does have pain over his left leg secondary to a fracture in the past as well as over his axial lumbar spine for which he is utilized Percocet 5/3 25 mg up to 4 tablets daily for a number of years. He states that previously he was on MS Contin and Percocet when he lived in [place] a few years ago but subsequently has moved to [facility] and receives his opiates (Percocet only currently) through his primary care physician. He denies any side effects from his medication use though reports he has built tolerance over the years and finds it less efficacious than previous. He denies any bowel or bladder incontinence, motor weakness, footdrop, fever, chills, night sweats currently. He is currently working with a pain management physician in [place] who through patient reports sounds to have recently performed a thoracolumbar radiof requency ablation of the medial branch nerves. Patient did not give further description but reports that this radio frequency ablation has been slightly beneficial in diminishing his chronic axial low back pain. Pain Assessment Full Body Front + Back: 1. 2. 3. [facility] Combined Pain Scale: 8-Debilitating - Impairs activity. Can't maintain a conversation. Pain scale - at its best (0-10): 7 Pain scale - at its worst (0-10): 10 Allergies Allergy/AdvReac Type Severity Reaction Status Date / Time Iodinated Contrast Media Allergy Anaphylaxis Verified 09/15/19 15:01 shrimp Allergy Anaphylaxis Unverified 09/11/19 23:33 aspirin AdvReac Tachycardia Unverified 09/11/19 23:34 Home Medications Home Medications Medication Instructions Recorded Confirmed Type Nifedipine Rectal Oint 0.2 % MS BID 09/11/19 09/11/19 History allopurinol 100 mg PO DAILY 09/11/19 09/11/19 History ascorbic acid (vitamin C) 500 mg PO DAILY 09/11/19 09/11/19 History calcium citrate-vitamin D3 1 tab PO BID 09/11/19 09/11/19 History [Citracal + D Petites] cyanocobalamin (vitamin B-12) 1,000 mcg PO DAILY 09/11/19 09/11/19 History cyclobenzaprine 10 mg PO TID PRN 09/11/19 09/11/19 History dicyclomine 10 mg PO BID 09/11/19 09/11/19 History ferrous sulfate 325 mg PO BID 09/11/19 09/11/19 History folic acid 1 mg PO DAILY 09/11/19 09/11/19 History gabapentin 400 mg PO TID 09/11/19 09/11/19 History hydroxyzine pamoate [Vistaril] 25 mg PO QID PRN 09/11/19 09/11/19 History lorazepam 0.5 mg PO TID PRN MDD 3 TAB 09/11/19 09/11/19 History multivitamin [Multiple Vitamins] 1 tab PO DAILY 09/11/19 09/11/19 History ondansetron 4 mg PO Q6H PRN 09/11/19 09/11/19 History oxybutynin chloride 10 mg PO DAILY 09/11/19 09/11/19 History oxycodone-acetaminophen 1 tab PO Q6H PRN MDD 4 TAB 09/11/19 09/11/19 History pantoprazole 40 mg PO BID 09/11/19 09/11/19 History quetiapine 50 mg PO BID 09/11/19 09/11/19 History quetiapine 200 mg PO HS 09/11/19 09/11/19 History rivaroxaban 20 mg PO QDD 09/11/19 09/11/19 History sucralfate 1 g PO QID 09/11/19 09/11/19 History tamsulosin 0.4 mg PO BID 09/11/19 09/11/19 History thiamine HCl (vitamin B1) 100 mg PO DAILY 09/11/19 09/11/19 History venlafaxine 75 mg PO DAILY 09/11/19 09/11/19 History Pain History Pain Intensity Pain scale - at its best (0-10): 7 Pain scale - at its worst (0-10): 10 Patient History Medical History Alcoholism NV (myocardial infarction) PE (pulmonary thromboembolism) Prostate cancer Surgical History History of abdominal surgery History of intestinal surgery Social History Preferred Language: Faroese Communication Ability: Impaired 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 Beliefs That Will Affect Care: None Current Living Situation: Homeless Current Living Situation Comment: homeless Other Information That Helps Us Care for You: No Feels Safe at Home: No Is there a partner from a previous relationship who is making you feel unsafe now?: No Any Concerns about Your Family Situation: No Would You Like to Speak to Someone About Your Situation: No Safety Concerns: Feels Safe At This Time Smoking Status: Current every day smoker Tobacco Type: cigarettes ; Cigarettes Per Day: 20 ; Hx Alcohol Use: Yes Alcohol type: hard liquor Hx Substance Use: No Physical Exam Physical Exam: Constitutional: Well-developed, well-nourished, normal weight. Patient is using his cell phone on my entrance to the room. Psych: Awake, alert, and oriented 3 with normal affect and mood. Recent memory appears grossly intact Eyes: Pupils are equally round and reactive to light with normal size pupils, eyelids appear normal Ear, nose, mouth, and throat: Moist nasal and oral membranes, lips and tongues appear normal, no external ear abnormalities are noted Neck: The trachea is midline without deviation and no thyromegaly is noted Respiratory: Normal respiratory effort without distress, no audible wheezes or rhonchi CV: Normal S1 and S2 Chest: Patient has tenderness to AP compression on the right-hand side. He is tender to palpation over approximately the ninth rib on the right. GI/abdomen: Non-tender without guarding Musculoskeletal: Head is normocephalic and atraumatic, gait was not observed the patient is able to move easily in bed without difficulty. Cervical: Lordotic curve: Normal Range of motion is normal with extension, flexion, side-bending, rotation Strength: Strength is grossly equal bilaterally with 5 out of 5 strength in all planes Thoracic: Kyphotic curve: Normal Range of motion is slightly decreased with extension, flexion, side-bending, rotation Tenderness: Moderately tender over the axial midline left greater than right Facet provocation: Negative bilaterally Scoliosis present: None Step-off injuries: None Myofascial spasm: Mild appreciable spasm. No discrete trigger points noted Lumbar: Lordotic curve: Slight decreased lumbar lordosis Range of motion is normal with extension, flexion, side-bending, rotation Tenderness: Mildly tender over the axial midline Strength: Strength is equal bilaterally with 5 out of 5 strength in all planes Myofascial spasm: No appreciable spasm. No discrete trigger points noted Skin: No rashes, lesions, ulcers, or induration noted. No bruising noted. Neuro: No nystagmus noted, the tongue is midline, the patient is able to rotate their head bilaterally : Deferred Results Diagnostic Review CT: non enhanced, reports reviewed and findings discussed with patient CT Findings: 09/11/19 CT chest wo con CLINICAL HISTORY: 59 years-old Male presenting with fall, pain. TECHNIQUE: Multidetector CT imaging of the chest was performed without the use of intravenous contrast. IV contrast: None. One or more dose lowering techniques were used consistent with the principles of ALARA (as low as reasonably achievable), including automatic exposure control, mA or kV adjustment to individual patient size, and/or use of iterative reconstruction. COMPARISON: None. CT DOSE (mGy.cm): The estimated cumulative dose is 1329.6. FINDINGS: Aircraft Engine Technician topogram: Unremarkable. Soft tissues: Normal thyroid and thoracic inlet. No axillary, supraclavicular, or mediastinal lymphadenopathy. Evaluation of the tamir limited without intravenous contrast. Atherosclerosis of the aorta. Normal heart size. Coronary artery calcification. No pericardial or pleural effusion. Hepatic steatosis. Surgical clips in the epigastrium at the gastroesophageal junction. Distended gallbladder, possibly on a physiologic basis. Lungs and airways: No pneumothorax. Central airways patent. Pulmonary arteries are not significantly enlarged relative to adjacent bronchi. No interlobular septal thickening. A few scattered punctate nodules, nonspecific. Polygonal peripheral solid 5 mm nodule in the superior segment of the right upper lobe (series 8 image 125). This has a benign morphology. Musculoskeletal: Degenerative changes of the spine. Exaggerated thoracic kyphosis with vertebral body height loss at T7 and T8 consistent with likely chronic compression fractures. Acute-appearing posterior minimally displaced right ninth rib fracture. Several old posterolateral left rib fractures evident. IMPRESSION: 1. Possible acute posterior right ninth rib fracture. Correlate with point tenderness. 2. Likely old compression fractures of T7 and T8. Correlate with point tenderness. 3. Multiple solid pulmonary nodules measuring up to 5 mm. These are benign- appearing though indeterminate, follow-up per Fleischner Society 2017 recommendations below. 4. Hepatic steatosis. Radiology Findings: 09/15/19 XR ribs RT min 3V w CXR1V CLINICAL HISTORY: Right rib pain. Recent fall. COMPARISON: Chest radiograph and chest CT September 11, 2019. FINDINGS: Lung volumes are diminished. Mild bibasilar opacities favor atelectasis. There is no consolidation to suggest pneumonia. No pneumothorax is present. The nondisplaced posterior right ninth rib fracture is better depicted on the CT of September 11, 2019. No evidence for pulmonary edema. Cardiac size is normal. IMPRESSION: 1. No pneumothorax. 2. The acute nondisplaced posterior right ninth rib fracture is better depicted on CT of September 11, 2019. 3. Low lung volumes with suspected bibasilar atelectasis.
[2019-09-18] MEDS ORDERED: SODIUM CHLORIDE 0.9% 1000ML 500 ML IV ONE (15:10)
--- NOTE | 2019-09-18 16:10 | Hospitalist Progress Note ---
Date of Service September 18, 2019 Assessment & Plan (1) Alcohol abuse: Severe withdrawal. Tachycardic. On occasion very sedated. Appreciate pain medicine recommendations: Morphine 2 mg IV every 2 hours and Percocet 5 mg 325 every 4 hours. Continue pantoprazole 40 mg p.o. twice daily .continue tapering off of gabapentin since patient more alert.Nerve block planned for this week . Hold Xarelto for 72 hours referred to pain management waiting for their evaluation. Continue ketorolac 15 mg every 6 hours IV as needed for pain. Continue Seroquel 50 mg twice daily and 100 nightly since patient tolerated this better and is less sedated. Recommended alcohol cessation and joining AA. Patient to avoid oversedation but he keep patient withdrawal symptoms under control. (2) Fracture of rib: Consulted Dr. Rafy Fletcher, castro spinal compression fractures T7 and T8 most probably chronic. Continue pain management pending his evaluation. (3) PE (pulmonary thromboembolism): Hold Xarelto since pain management plans to help patient with nerve block on . (4) Prostate cancer: Continue monitoring for bleeding or urinary obstructions. Appreciate urology recommendations : PSA 5.69 Can f/u as outpt to further discuss prostate ca care Continue Flomax.Continue pain management. (5) Gout: Continue home dose of allopurinol Subjective Patient seen and examined at the bedside. Afebrile. Patient continues to be in severe alcohol withdrawal. Patient is more alert and oriented today. He complains of excruciating pain in his back and right side of his ribs. The pump was discontinued last night because patient lost IV at that side. Patient has T7 and T8 compression fractures that appears to be chronic on the CT scan. Before coming to [facility] patient was seen by Dr. Macario Cantor at his clinic [place] [facility] and he tried to help him with nerve blocks on the left side which patient said they will last for long time. Continue monitoring and CIWA protocol. Patient denies fever chills chest pain hallucinations tremors shortness of breath frequency urgency hematuria hemoptysis and dysuria. Complains of pain in his right sided ribs and painful urination. Plan to follow-up with [facility] urology on . Review of Systems Review of Systems: All systems reviewed & are unremarkable except as noted in HPI & below Physical Exam Constitutional: WD/WN, vitals as above well developed Eyes: PERRL, conjunctivae normal, anicteric sclerae ENMT: external ear and nose normal, oropharynx normal Neck: trachea midline, no thyromegaly Respiratory: normal respiratory effort, lungs clear to auscultation Cardiovascular: Rate/Rhythm: + tachycardic Heart Sounds: normal S1 and normal S2 Gastrointestinal (Abdomen): normal bowel sounds, soft, nontender, no hepatosplenomegaly Musculoskeletal: no cyanosis or clubbing, extremities motor strength 5/5 Neurologic: patellar DTR's 2+ bilat, sensation intact Psychiatric: A+Ox3, euthymic affect Lymphatic: no cervical or axillary lymphadenopathy Results & Data Vital Signs (Past 12 Hours) Vital Signs Temp Pulse Pulse Resp BP BP Pulse Ox 09/18/19 15:56 36.8 C 110 H 19 115/73 95 09/18/19 12:19 36.5 C 117 H 16 94/66 L 95 09/18/19 11:31 36.5 C 114 H 20 115/71 92 09/18/19 08:00 101 H 09/18/19 06:53 36.5 C 98 H 20 119/81 93 PG Care Time/CCT Total # of Minutes Spent Total Time Spent with Patient: Total time spent is greater than 50% in coordination of care (as documented) at patient's floor/unit and/or counseling patient: (1) Fracture of rib Encounter type: initial encounter Fracture type: closed Laterality: left Rib fracture type: single rib Qualified Code(s): S22.32XA - Fracture of one rib, left side, initial encounter for closed fracture
[2019-09-18] MEDS: PHENAZOPYRIDINE HCL 100 MG TAB PO PRN (16:11)
[2019-09-18] MEDS: KETOROLAC TROMETHAMINE 15 MG/ML VIAL IV PRN (16:25)
[2019-09-18] MEDS: OXYCODONE/ACETAMINOPHEN 5mg/325mg TAB PO PRN ×2 (16:54→21:13)
--- NOTE | 2019-09-18 19:06 | Consultation Report ---
DATE OF CONSULTATION: 09/12/2019 CHIEF COMPLAINT: Back pain from an orthopedic perspective. HISTORY OF PRESENT ILLNESS: Varghese is 59. He is pleasant. He has had ongoing back pain for multiple years. When I asked him, really he has had problems since the 1970s if that is an accurate story. He has also more recently been treated with a back brace and support for the last 18 months. He does have a brace at home. He was admitted because of severe alcohol withdrawal, tachycardia, multiple other medical issues. He told me he has prostate CA, rib fracture, pulmonary emboli. He is alert, oriented today. Back pain but ongoing for multiple years. He has also been followed by Dr. Cantor in [place] for pain blocks as well and then made a way here to [facility]. He has no fevers, sweats, chills. He complains of pain, but no other constitutional symptoms. OBJECTIVE: GENERAL: He is alert, oriented. Mentation normal. He has slight pain with percussion. NEUROLOGIC: He has no neurological deficit. His x-rays do demonstrate a chronic compression fracture of T7-T8. I do not think there are new pathology. ASSESSMENT: Includes chronic compression fractures of T7-T8. PLAN: This will be followed up in the office. He needs no formal treatment here today. He has a brace at home, which is appropriate. I will see him in the office. He really would not be a candidate for any type of surgical intervention. I think pain management is the appropriate pathway. Major surgery would not be indicated, even the kyphoplasty procedure, probably not the best choice either. I will be glad to follow him if he needs followup care in the office.
[2019-09-18] MEDS: QUETIAPINE FUMARATE 100 MG TABLET PO SCH (20:41)
[2019-09-19] MEDS: MoRPHine SULFATE 2 MG/ML CARP IV PRN ×6 (02:29→22:14)
[2019-09-19] MEDS: OXYCODONE/ACETAMINOPHEN 5mg/325mg TAB PO PRN ×3 (06:22→18:25)
[2019-09-19 07:24] LABS: Basophils # (auto) 0.02 K/uL (0-0.2); Basophils % (auto) 0.4 %; Eosinophils # (auto) 0.31 K/uL (0-0.5); Eosinophils % (auto) 6.7 %; Hematocrit (blood only) 31.1 % (42-52); Hemoglobin 10.4 g/dL (14.0-18.0); Immature Granulocytes # (auto) 0.07 K/uL (0.00-0.02); Immature Granulocytes % (auto) 1.5 %; Lymphocytes # (auto) 0.89 K/uL (1.2-3.4); Lymphocytes % (auto) 19.2 %; Mean Corpuscular Hemoglobin 32.9 pg (25-34); Mean Corpuscular Hgb Conc 33.4 g/dL (32-36); Mean Corpuscular Volume 98.4 fL (80-100); Mean Platelet Volume 10.3 fL (7.4-10.4); Monocytes # (auto) 1.05 K/uL (0.11-0.59); Monocytes % (auto) 22.6 %; Neutrophils % (auto) 49.6 %; Platelet Count 269 K/uL (130-400); RDW Coefficient of Variation 14.5 % (11.5-14.5); Red Blood Count 3.16 M/uL (4.7-6.1); White Blood Count 4.64 K/uL (4.8-10.8)
[2019-09-19 07:40] LABS: Albumin Globulin Ratio 0.8 (0.9-2); Albumin Level 2.2 gm/dl (3.4-5.0); BUN Creatinine Ratio 29.8 (10-20); Bilirubin,Total 0.2 mg/dl (0.2-1); Calcium 8.3 mg/dl (8.5-10.1); Creatinine Clr Calc Pharmacy 108.6 ml/min; Est GFR (African American) 118.9; Est GFR (Non-African American) 102.6; Globulin 2.8 gm/dl (2.5-4.0)
[2019-09-19] MEDS: SUCRALFATE 1 GM TAB PO SCH ×4 (08:06→20:14)
[2019-09-19] MEDS: DICYCLOMINE HCL 10 MG CAP PO SCH ×2 (08:07→20:14)
[2019-09-19] MEDS: FERROUS SULFATE 325 MG TAB PO SCH ×2 (08:08→20:15)
[2019-09-19] MEDS: VENLAFAXINE HCL XR 75 MG CAPXR PO SCH (08:08)
[2019-09-19] MEDS: CALCIUM 600MG + VIT D 400 IU TAB PO SCH ×2 (08:08→20:14)
[2019-09-19] MEDS: BACLOFEN 10 MG TAB PO SCH ×3 (08:09→20:14)
[2019-09-19] MEDS: FOLIC ACID 1 MG TAB PO SCH (08:09)
[2019-09-19] MEDS: TAMSULOSIN HCL 0.4 MG CAP PO SCH ×2 (08:09→20:14)
[2019-09-19] MEDS: MULTIVITAMIN TAB PO SCH (08:10)
[2019-09-19] MEDS: GABAPENTIN 300 MG CAP PO SCH ×3 (08:10→20:14)
[2019-09-19] MEDS: THIAMINE HCL 100 MG TAB PO SCH (08:11)
[2019-09-19] MEDS: PANTOprazole 40 MG TAB PO SCH ×2 (08:11→20:13)
[2019-09-19] MEDS: QUETIAPINE FUMARATE 25 MG TABLET PO SCH ×2 (08:11→20:15)
[2019-09-19] MEDS: CYANOCOBALAMIN 500 MCG TABLET (VITAMIN B-12) PO SCH (08:11)
[2019-09-19] MEDS: allopurinoL 100 MG TAB PO SCH (08:12)
[2019-09-19] MEDS: ASCORBIC ACID 500 MG TAB PO SCH (08:12)
[2019-09-19 08:13] LABS: Potassium 4.3 mmol/L (3.5-5.1)
[2019-09-19] MEDS: LIDOCAINE 5% 1 PATCH TD SCH (08:13)
[2019-09-19] MEDS: PHENAZOPYRIDINE HCL 100 MG TAB PO PRN (18:24)
[2019-09-19] MEDS: KETOROLAC TROMETHAMINE 15 MG/ML VIAL IV PRN (19:21)
--- NOTE | 2019-09-19 19:33 | Hospitalist Progress Note ---
Date of Service September 19, 2019 Assessment & Plan (1) Alcohol abuse: Severe withdrawal. Tachycardic. On occasion very sedated. Appreciate pain medicine recommendations: Morphine 2 mg IV every 2 hours and Percocet 5 mg 325 every 4 hours. Continue pantoprazole 40 mg p.o. twice daily .continue tapering off of gabapentin since patient more alert.Nerve block planned for this week . Hold Xarelto for 72 hours referred to pain management waiting for their evaluation. Continue ketorolac 15 mg every 6 hours IV as needed for pain. Continue Seroquel 50 mg twice daily and 100 nightly since patient tolerated this better and is less sedated. Recommended alcohol cessation and joining AA. Patient to avoid oversedation but he keep patient withdrawal symptoms under control. (2) Fracture of rib: Consulted Dr.John Fletcher, ortho spinal compression fractures T7 and T8 most probably chronic. He will see him in the office. Continue brace that he has at home. At this point patient is not candidate for the procedure. Continue pain management and plan to do a nerve block on . Hold Xarelto while waiting for the nerve block. (3) PE (pulmonary thromboembolism): Hold Xarelto since pain management plans to help patient with nerve block on . (4) Prostate cancer: Continue monitoring for bleeding or urinary obstructions. Appreciate urology recommendations : PSA 5.69 Can f/u as outpt to further discuss prostate ca care Continue Flomax.Continue pain management. (5) Gout: Continue home dose of allopurinol Subjective Patient seen and examined at the bedside. Afebrile. Patient continues to be in severe alcohol withdrawal. Patient is more alert and oriented today. He complains of excruciating pain in his back and right side of his ribs.Patient has T7 and T8 compression fractures that appears to be chronic on the CT scan but not the candidate for intervention per spinal surgery. Before coming to [facility] patient was seen by Dr. Macario Cantor [place] [facility] [place] he tried to help him with nerve blocks on the left side which patient said they will last for long time. Continue monitoring and CIWA protocol. Patient denies fever chills chest pain hallucinations tremors shortness of breath frequency urgency hematuria hemoptysis and dysuria. Complains of pain in his right sided ribs and painful urination. Plan to follow-up with [facility] urology on . Review of Systems Review of Systems: All systems reviewed & are unremarkable except as noted in HPI & below Physical Exam Constitutional: WD/WN, vitals as above well developed Eyes: PERRL, conjunctivae normal, anicteric sclerae ENMT: external ear and nose normal, oropharynx normal Neck: trachea midline, no thyromegaly Respiratory: normal respiratory effort, lungs clear to auscultation Cardiovascular: Rate/Rhythm: + tachycardic Heart Sounds: normal S1 and normal S2 Gastrointestinal (Abdomen): normal bowel sounds, soft, nontender, no hepatosplenomegaly Musculoskeletal: no cyanosis or clubbing, extremities motor strength 5/5 Neurologic: patellar DTR's 2+ bilat, sensation intact Psychiatric: A+Ox3, euthymic affect Lymphatic: no cervical or axillary lymphadenopathy Results & Data Vital Signs (Past 12 Hours) Vital Signs Temp Pulse Resp BP Pulse Ox 09/19/19 15:08 36.5 C 90 20 105/61 90 09/19/19 07:34 36.8 C 74 16 97/62 L 97 PG Care Time/CCT Total # of Minutes Spent Total Time Spent with Patient: Total time spent is greater than 50% in coordination of care (as documented) at patient's floor/unit and/or counseling patient: (1) Fracture of rib Encounter type: initial encounter Fracture type: closed Laterality: left Rib fracture type: single rib Qualified Code(s): S22.32XA - Fracture of one rib, left side, initial encounter for closed fracture
[2019-09-19] MEDS: QUETIAPINE FUMARATE 100 MG TABLET PO SCH (20:15)
[2019-09-20] MEDS: OXYCODONE/ACETAMINOPHEN 5mg/325mg TAB PO PRN ×4 (00:06→16:21)
[2019-09-20] MEDS: LIDOCAINE 5% 1 PATCH TD SCH (08:19)
[2019-09-20] MEDS: THIAMINE HCL 100 MG TAB PO SCH (08:20)
[2019-09-20] MEDS: ASCORBIC ACID 500 MG TAB PO SCH (08:20)
[2019-09-20] MEDS: VENLAFAXINE HCL XR 75 MG CAPXR PO SCH (08:20)
[2019-09-20] MEDS: TAMSULOSIN HCL 0.4 MG CAP PO SCH ×2 (08:20→21:09)
[2019-09-20] MEDS: SUCRALFATE 1 GM TAB PO SCH ×4 (08:20→21:09)
[2019-09-20] MEDS: CYANOCOBALAMIN 500 MCG TABLET (VITAMIN B-12) PO SCH (08:21)
[2019-09-20] MEDS: QUETIAPINE FUMARATE 25 MG TABLET PO SCH ×2 (08:21→21:07)
[2019-09-20] MEDS: allopurinoL 100 MG TAB PO SCH (08:21)
[2019-09-20] MEDS: BACLOFEN 10 MG TAB PO SCH ×3 (08:21→21:06)
[2019-09-20] MEDS: MULTIVITAMIN TAB PO SCH (08:22)
[2019-09-20] MEDS: CALCIUM 600MG + VIT D 400 IU TAB PO SCH ×2 (08:22→21:07)
[2019-09-20] MEDS: DICYCLOMINE HCL 10 MG CAP PO SCH ×2 (08:22→21:07)
[2019-09-20] MEDS: GABAPENTIN 300 MG CAP PO SCH ×3 (08:22→21:09)
[2019-09-20] MEDS: FOLIC ACID 1 MG TAB PO SCH (08:22)
[2019-09-20] MEDS: FERROUS SULFATE 325 MG TAB PO SCH ×2 (08:23→21:10)
[2019-09-20 08:24] LABS: Albumin Level 2.4 gm/dl (3.4-5.0); Calcium 8.6 mg/dl (8.5-10.1); Creatinine Clr Calc Pharmacy 93.8 ml/min; Est GFR (Non-African American) 96.6; Potassium 4.2 mmol/L (3.5-5.1)
[2019-09-20 08:27] LABS: Albumin Globulin Ratio 0.8 (0.9-2); Bilirubin,Total 0.2 mg/dl (0.2-1); Total Protein 5.4 gm/dl (6.4-8.2)
[2019-09-20 09:11] LABS: Basophils # (auto) 0.01 K/uL (0-0.2); Basophils % (auto) 0.2 %; Eosinophils # (auto) 0.32 K/uL (0-0.5); Hematocrit (blood only) 32.7 % (42-52); Hemoglobin 10.7 g/dL (14.0-18.0); Immature Granulocytes # (auto) 0.03 K/uL (0.00-0.02); Immature Granulocytes % (auto) 0.6 %; Lymphocytes # (auto) 0.78 K/uL (1.2-3.4); Lymphocytes % (auto) 14.7 %; Mean Corpuscular Hemoglobin 32.9 pg (25-34); Mean Corpuscular Hgb Conc 32.7 g/dL (32-36); Mean Corpuscular Volume 100.6 fL (80-100); Mean Platelet Volume 9.5 fL (7.4-10.4); Monocytes # (auto) 0.98 K/uL (0.11-0.59); Monocytes % (auto) 18.5 %; Neutrophils # (auto) 3.17 K/uL (1.4-6.5); Platelet Count 300 K/uL (130-400); RDW Coefficient of Variation 14.6 % (11.5-14.5); RDW Standard Deviation 53.4 fL (36.4-46.3); Red Blood Count 3.25 M/uL (4.7-6.1); White Blood Count 5.29 K/uL (4.8-10.8)
--- NOTE | 2019-09-20 09:53 | Hospitalist Progress Note ---
Date of Service September 20, 2019 Assessment & Plan (1) Alcohol abuse: Patient no longer seem to be in acute alcohol withdrawal. He is awake alert and oriented. He has not had Ativan dosing in several days. Patient repeats to me a commitment to quit drinking, he would like to participate in inpatient alcohol rehabilitation once he gets his living situation under control. He does tell me he was previously living in a homeless [facility]dc. (2) Fracture of rib: Consulted Dr.John Fletcher, ortho spinal compression fractures T7 and T8 most probably chronic. He will see him in the office. Continue brace that he has at home. I do also see a consultation from pain management, plan is for a right ninth intercostal nerve block which is tentatively planned for 09/21. Patient's Xarelto was held in anticipation for this. For now, we will continue patient's current pain regimen which includes morphine, Toradol, oral Percocet, and Lidoderm patches. (3) PE (pulmonary thromboembolism): Hold Xarelto since pain management plans to help patient with nerve block on . (4) Prostate cancer: Patient continues to complain of dysuria. I do see a CT scan on admission which was negative for any urological pathology. We will check a repeat UA. We can consider reinserting the Alaniz the patient becomes uncomfortable. Continue Pyridium. Subjective Patient seen and examined. No longer in alcohol withdrawal. Patient's main complaint is ongoing pain. He complains of pain in his back as well as his right flank. He also notes dysuria after his Alaniz catheter was removed. On further questioning, it sounds of all these issues are chronic and ongoing with this patient. He has seen pain management in the past and had multiple epidural injections with little relief. He does have a history of prostate cancer. He is on Pyridium which provides only some relief. He also has Lidoderm patches which she feels is very little for his pain. Review of Systems Review of Systems: All systems reviewed & are unremarkable except as noted in HPI & below Physical Exam Physical Exam: GENERAL: Non-toxic in appearance. INTEGUMENTARY: Warm, dry, and [place]. HEAD: Normocephalic. EYES: without scleral icterus or trauma. ENT/OROPHARYNX: clear and moist. LYMPHADENOPATHY/NECK: Is supple without lymphadenopathy or meningismus. RESPIRATORY: Lungs clear and equal. CARDIOVASCULAR: Regular rate and rhythm. GI/ABDOMEN: Soft and nontender. No organomegaly or pulsatile mass. No rebound or guarding. Normal bowel sounds. No CVA tenderness. EXTREMITIES: Warm and well perfused. BACK: No CVA tenderness. NEUROLOGICAL: Intact without focal deficits. No tremor or diaphoresis, no other signs of alcohol withdrawal. PSYCHIATRIC: normal affect. MUSCULOSKELETAL: Normally developed with good muscle tone. Results & Data Vital Signs (Past 12 Hours) Vital Signs Temp Pulse Resp BP Pulse Ox 09/20/19 08:14 36.8 C 100 H 18 113/71 92 09/20/19 00:00 36.5 C 85 20 135/74 95 PG Care Time/CCT Total # of Minutes Spent Total Time Spent with Patient: Total time spent is greater than 50% in coordination of care (as documented) at patient's floor/unit and/or counseling patient: (1) Fracture of rib Encounter type: initial encounter Fracture type: closed Laterality: left Rib fracture type: single rib Qualified Code(s): S22.32XA - Fracture of one rib, left side, initial encounter for closed fracture
[2019-09-20] MEDS: MoRPHine SULFATE 2 MG/ML CARP IV PRN ×2 (09:55→18:03)
[2019-09-20] MEDS: PANTOprazole 40 MG TAB PO SCH ×2 (10:26→21:08)
[2019-09-20 17:19] LABS: Appearance Urine Clear (Clear); Bilirubin Urine Negative (Negative); Blood Urine Negative (Negative); Color Urine Yellow; Glucose Urine UA Negative (Negative); Ketones Urine Negative (Negative); Leukocyte Esterase Urine Negative (Negative); Nitrite Urine Negative (Negative); Protein Urine Negative (Negative); Specific Gravity Urine 1.018 (1.000-1.030); Urobilinogen Urine Negative (Negative)
[2019-09-20] MEDS: QUETIAPINE FUMARATE 100 MG TABLET PO SCH (21:08)
[2019-09-21] MEDS: MoRPHine SULFATE 2 MG/ML CARP IV PRN ×8 (00:04→22:23)
[2019-09-21 06:11] LABS: Basophils # (auto) 0.02 K/uL (0-0.2); Basophils % (auto) 0.5 %; Eosinophils # (auto) 0.25 K/uL (0-0.5); Eosinophils % (auto) 6.4 %; Hematocrit (blood only) 30.8 % (42-52); Hemoglobin 10.2 g/dL (14.0-18.0); Immature Granulocytes # (auto) 0.04 K/uL (0.00-0.02); Lymphocytes # (auto) 0.87 K/uL (1.2-3.4); Lymphocytes % (auto) 22.4 %; Mean Corpuscular Hemoglobin 33.4 pg (25-34); Mean Corpuscular Hgb Conc 33.1 g/dL (32-36); Mean Platelet Volume 10.2 fL (7.4-10.4); Monocytes # (auto) 0.96 K/uL (0.11-0.59); Monocytes % (auto) 24.7 %; Neutrophils # (auto) 1.75 K/uL (1.4-6.5); Platelet Count 313 K/uL (130-400); RDW Coefficient of Variation 14.7 % (11.5-14.5); RDW Standard Deviation 53.9 fL (36.4-46.3); Red Blood Count 3.05 M/uL (4.7-6.1); White Blood Count 3.89 K/uL (4.8-10.8)
[2019-09-21 06:37] LABS: Calcium 8.4 mg/dl (8.5-10.1); Creatinine Clr Calc Pharmacy 108.6 ml/min; Est GFR (African American) 118.9; Est GFR (Non-African American) 102.6; Potassium 3.9 mmol/L (3.5-5.1)
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
[2019-09-21] MEDS: SUCRALFATE 1 GM TAB PO SCH ×4 (08:22→20:14)
[2019-09-21] MEDS: DICYCLOMINE HCL 10 MG CAP PO SCH ×2 (08:23→20:13)
[2019-09-21] MEDS: CALCIUM 600MG + VIT D 400 IU TAB PO SCH ×2 (08:25→20:13)
[2019-09-21] MEDS: VENLAFAXINE HCL XR 75 MG CAPXR PO SCH (08:26)
[2019-09-21] MEDS: FERROUS SULFATE 325 MG TAB PO SCH ×2 (08:26→21:25)
[2019-09-21] MEDS: TAMSULOSIN HCL 0.4 MG CAP PO SCH ×2 (08:28→20:13)
[2019-09-21] MEDS: FOLIC ACID 1 MG TAB PO SCH (08:28)
[2019-09-21] MEDS: LIDOCAINE 5% 1 PATCH TD SCH (08:29)
[2019-09-21] MEDS: BACLOFEN 10 MG TAB PO SCH ×3 (08:30→20:13)
[2019-09-21] MEDS: MULTIVITAMIN TAB PO SCH (08:31)
[2019-09-21] MEDS: GABAPENTIN 300 MG CAP PO SCH ×3 (08:32→20:13)
[2019-09-21] MEDS: PANTOprazole 40 MG TAB PO SCH ×2 (08:33→20:13)
[2019-09-21] MEDS: THIAMINE HCL 100 MG TAB PO SCH (08:34)
[2019-09-21] MEDS: QUETIAPINE FUMARATE 25 MG TABLET PO SCH ×2 (08:34→20:13)
[2019-09-21] MEDS: ASCORBIC ACID 500 MG TAB PO SCH (08:35)
[2019-09-21] MEDS: CYANOCOBALAMIN 500 MCG TABLET (VITAMIN B-12) PO SCH (08:35)
[2019-09-21] MEDS: allopurinoL 100 MG TAB PO SCH (08:36)
[2019-09-21] MEDS: OXYCODONE/ACETAMINOPHEN 5mg/325mg TAB PO PRN ×2 (10:45→20:12)
--- NOTE | 2019-09-21 14:37 | Procedure Note ---
Procedure Note Date of Service September 21, 2019 Note INTERCOSTAL NERVE BLOCK Diagnosis: Intercostal neuralgia. Side/Level injected: Right T8 and T9 Surgeon: Dr. Fuller Prior to starting, the Patients diagnosis and the procedure were reviewed with the patient in detail. Possible risks and complications including infection, bleeding, damage to surrounding structures and increased pain were discussed. Alternative therapies were also reviewed. Patients questions were answered and they agreed to proceed. Informed consent was obtained. Allergies and medication list was reviewed. The patient was brought to the procedure room and placed in left lateral decubitus position. Immediately prior to starting the procedure, a ``time out was conducted with the staff and the patient where the patient was identified, proposed procedure was verified, consent was reviewed and the proper site for the planned procedure was identified. Monitors used included intermittent blood pressure with automated device, continuous pulse oximetry and level of consciousness. Patient was not given any intravenous sedation and constant verbal contact was maintained throughout the procedure. Biplanar fluoroscopy was used to assist in placement of the needle as well as to evaluate final nee dle position prior to the injection. On examination, no signs of skin breakdown or infection were noted at the injection site. The site was cleansed with DuraPrep followed by Betadine. Sterile drapes were applied. Next, appropriate rib on the appropriate side identified under fluoroscopy to true AP view. Skin was infiltrated with 0.5 mL of 1% lidocaine MPF. A 23 gauge, 1.5 needle was introduced through the anesthetized area and placed at the inferior edge of the rib. C-arm was lateral view and the needle was then ``walked off the inferior margin of the rib into the neurovascular bundle. No blood, paresthesia or air was aspirated. Contrast was not used as patient has history of being allergic to it. 2.5 ml of 0.5% ropivacaine MPF containing 20 milligrams of Kenalog was injected. Needle was flushed with additional local anesthetic and withdrawn. Hemostasis was noted. Band-Aids were applied at the site. Chest x-ray was obtained to evaluate for any hemo or pneumothorax. Patient tolerated the procedure uneventfully without complications. Patient was transported to his bed via stretcher after observing him for 15 minutes in the fluoroscopy suite. Breath sounds were symmetrical prior to departure. Coding
--- NOTE | 2019-09-21 14:40 | XRay Report ---
XR chest 1V not portable HISTORY: Post procedure. R/O pneumothorax after right T8 and T9 rib blocks COMPARISON: Chest 09/15/2019. FINDINGS: Question of tiny pleural reflection within the right lung apex versus artifact. Linear dens ities within the right midlung zone consistent with atelectasis. The left lung is clear. The heart is normal in size. Old, healed left-sided rib fractures. IMPRESSION: Question of a tiny pleural reflection within the right lung apex versus artifact. Follow-up inspirati on and expiration views of the chest are recommended to exclude a tiny pneumothorax. This finding was called/faxed to the referring physician following dictation. Electronically signed by: Aron Hennessy M.D. 09/21/2019 2:39 PM
--- NOTE | 2019-09-21 14:47 | Pain Management Progress Note ---
Date of Service September 21, 2019 Assessment & Plan (1) Fracture of rib: * Patient's questions regarding the past nerve blocks were answered. Potential complication including hemothorax, pneumothorax, and additional interventions such as chest tube placement to correct the complications as wel l as failure to relieve patient's symptoms were discussed with him in detail. He reports understanding and asked to proceed. * Patient Xarelto has been withheld for 72 hours in anticipation of the pro cedure. No contraindications are noted to proceed. Encounter type: initial encounter Fracture type: closed Laterality: left Rib fracture type: single rib Qualified Code(s): S22.32XA - Fracture of one rib, left side, initial encounter for closed fracture Present on Admission?: Yes Caitlyn Kwong is scheduled to undergo a right sided intercostal nerve blocks at the level of his fractures. He complains experiencing pain with movement of his chest as well as the breathing and coughing. His symptoms remain unchanged from his previous complaints. Reports coughing yellowish and reddish tinged sputum reports difficulty with expectorating the sputum due to his right-sided lateral chest wall pain. Before proceeding with intercostal nerve block, he requested to answer several questions concerning the procedure. Pain Assessment Pain Assessment Full Body Front + Back: 1. 2. [facility] Combined Pain Scale: 5-Moderate - Cannot perform normal tasks without increase in pain Pain scale - at its best (0-10): 3 Pain scale - at its worst (0-10): 8 Physical Exam Constitutional: WD/WN, vitals as above + acute distress (With coughing.) Respiratory: normal respiratory effort and + cough Auscultation: + diminished lung sounds (Right base) Musculoskeletal: Spine: no lumbar spinal tenderness and no paraspinal tenderness Extremities: strength 5/5 throughout Gait: normal gait Skin: no rashes, warm and dry no rashes and no ulcers Psychiatric: A+Ox3, euthymic affect Apperance: + disheveled Affect: + flat affect Thought Process: goal directed thought process
--- NOTE | 2019-09-21 15:11 | Hospitalist Progress Note ---
Date of Service September 21, 2019 Assessment & Plan (1) Alcohol abuse: Patient no longer seem to be in acute alcohol withdrawal. He is awake alert and oriented. He has not had Ativan dosing in several days. There is been conversation regarding inpatient on the rehab. Patient has been somewhat demanding on the kind of rehab he would like to go to and does not want to go directly there. I did discuss the patient's preferences with case management and they tell me that the patient will need to be discharged directly to inpatient rehab, otherwise he not be able to do rehab as an inpatient. They also note that his choices are limited secondary to being on Medicaid insurance. If patient is still refusing inpatient alcohol rehab, the plan will be to discharge him out of the hospital. He is homeless and will need to make arrangements for a care home. (2) Fracture of rib: If I saw the patient, I was called by anesthesia and then performed the intercostal block. The postprocedure film did show possible tiny pneumothorax and he was planning to order inspiration/expiration films to confirm. He also requested a thoracic surgery consult for further management including possible chest tube although at this time the pneumothorax seems very small. For now, we will hold the patient overnight and place him on a gambling monitor. I will await thoracic surgery's input. Patient remained stable overnight, can consider discharge planning later on tomorrow morning once cleared by specialist services. (3) PE (pulmonary thromboembolism): Xarelto currently on hold for intervention by pain management. Will need to be restarted once cleared by their service. (4) Prostate cancer: Patient continues to complain of dysuria. I do see a CT scan on admission which was negative for any urological pathology. UA on admission was negative. This was repeated and remains negative. Patient tells me that he has a an appointment for an outpatient evaluation for cryosurgery of his prostate in the [facility] system. We did discuss the conflict with possible inpatient rehab versus making his appointment, patient will continue discussion with case management. (5) Pulmonary nodules: Patient was found to have multiple small pulmonary nodules on CT scan, as noted above. Patient was advised that he may need a surveillance of these. Recommendations to consider repeat CT scan 3-6months and he should discuss this with his primary care provider. This was added to his discharge documentation. Subjective Late entry. Patient was seen earlier today. He was still having ongoing pain in his right chest and was scheduled for a intercostal nerve block today. There was some concern regarding patient's discharge disposition as he has an appointment tomorrow morning to discuss cryosurgery for his prostate cancer. In addition, he is homeless and has nowhere to stay overnight. Patient did want to consider alcohol rehab but does not want to go directly there which would make it difficult for him to undergo treatment as an inpatient. Review of Systems Review of Systems: All systems reviewed & are unremarkable except as noted in HPI & below Physical Exam Physical Exam: GENERAL: Non-toxic in appearance. INTEGUMENTARY: Warm, dry, and [place]. HEAD: Normocephalic. EYES: without scleral icterus or trauma. ENT/OROPHARYNX: clear and moist. LYMPHADENOPATHY/NECK: Is supple without lymphadenopathy or meningismus. RESPIRATORY: Lungs clear and equal. CARDIOVASCULAR: Regular rate and rhythm. GI/ABDOMEN: Soft and nontender. No organomegaly or pulsatile mass. No rebound or guarding. Normal bowel sounds. EXTREMITIES: Warm and well perfused. BACK: No CVA tenderness. NEUROLOGICAL: Intact without focal deficits. PSYCHIATRIC: normal affect. MUSCULOSKELETAL: Normally developed with good muscle tone. Results & Data Vital Signs (Past 12 Hours) Vital Signs Temp Pulse Resp BP BP Pulse Ox 09/21/19 09:19 86 109/77 95 09/21/19 07:04 36.5 C 81 18 103/70 93 PG Care Time/CCT Total # of Minutes Spent Total Time Spent with Patient: Total time spent is greater than 50% in coordination of care (as documented) at patient's floor/unit and/or counseling patient: (1) Fracture of rib Encounter type: initial encounter Fracture type: closed Laterality: left Rib fracture type: single rib Qualified Code(s): S22.32XA - Fracture of one rib, left side, initial encounter for closed fracture
[2019-09-21] MEDS ORDERED: LORazepam 0.5 MG TAB PO PRN (15:38)
--- NOTE | 2019-09-21 15:45 | XRay Report ---
XR chest inspiration/expiratio CLINICAL HISTORY: Evaluate for rt sided pneumothorax. deep insp/exp COMPARISON STUDY: Chest radiograph September 15, 2019 and September 21, 2019 at 2:17 PM. FINDINGS: Lung volumes are normal. Lungs are clear. There is no pleural effusion. Note is made of a s mall right apical pneumothorax with pleural separation of 5 mm. There is cardiomegaly without evidenc e for pulmonary edema. IMPRESSION: Small right apical pneumothorax with pleural separation of [address] Kimberly baker at time of dictation. Electronically signed by: German Braswell M.D. 09/21/2019 3:44 PM
--- NOTE | 2019-09-21 19:11 | XRay Report ---
XR chest inspiration/expiratio CLINICAL HISTORY: Right pneumothorax. COMPARISON STUDY: Chest radiograph September 21, 2019 at 3:23 PM. FINDINGS: A trace right apical pneumothorax has decreased in size since prior exam. This is only evid ent on the expiration image. There is no evidence for pulmonary edema or pneumonia. IMPRESSION: Interval decrease in size of a trace right apical pneumothorax. Electronically signed by: German Braswell M.D. 09/21/2019 7:10 PM
[2019-09-21] MEDS: QUETIAPINE FUMARATE 100 MG TABLET PO SCH (20:13)
[2019-09-22] MEDS: OXYCODONE/ACETAMINOPHEN 5mg/325mg TAB PO PRN ×2 (03:11→09:26)
[2019-09-22] MEDS: MoRPHine SULFATE 2 MG/ML CARP IV PRN (06:10)
[2019-09-22] MEDS: CALCIUM 600MG + VIT D 400 IU TAB PO SCH (08:28)
[2019-09-22] MEDS: VENLAFAXINE HCL XR 75 MG CAPXR PO SCH (08:28)
[2019-09-22] MEDS: SUCRALFATE 1 GM TAB PO SCH (08:28)
[2019-09-22] MEDS: DICYCLOMINE HCL 10 MG CAP PO SCH (08:28)
[2019-09-22] MEDS: FOLIC ACID 1 MG TAB PO SCH (08:29)
[2019-09-22] MEDS: LIDOCAINE 5% 1 PATCH TD SCH (08:29)
[2019-09-22] MEDS: FERROUS SULFATE 325 MG TAB PO SCH (08:29)
[2019-09-22] MEDS: TAMSULOSIN HCL 0.4 MG CAP PO SCH (08:29)
[2019-09-22] MEDS: MULTIVITAMIN TAB PO SCH (08:30)
[2019-09-22] MEDS: PANTOprazole 40 MG TAB PO SCH (08:30)
[2019-09-22] MEDS: BACLOFEN 10 MG TAB PO SCH (08:30)
[2019-09-22] MEDS: GABAPENTIN 300 MG CAP PO SCH (08:30)
[2019-09-22] MEDS: CYANOCOBALAMIN 500 MCG TABLET (VITAMIN B-12) PO SCH (08:31)
[2019-09-22] MEDS: THIAMINE HCL 100 MG TAB PO SCH (08:31)
[2019-09-22] MEDS: QUETIAPINE FUMARATE 25 MG TABLET PO SCH (08:31)
[2019-09-22] MEDS: allopurinoL 100 MG TAB PO SCH (08:32)
[2019-09-22] MEDS: ASCORBIC ACID 500 MG TAB PO SCH (08:32)
--- NOTE | 2019-09-22 08:46 | Pain Management Progress Note ---
Date of Service September 22, 2019 Assessment & Plan (1) Fracture of rib: 1. Patient is aware that he may not receive the full effect of the intercostal nerve block for up to 2 weeks. He did report mild pain relief for the duration of the local anesthetic. 2. An urgent repeat chest xray was ordered to check on the progress of pneumothorax. If pneumothorax has improved/resolved he is ready to resume prior home medications and be discharged to home. If pneumothorax has not improved, would further hold Xarelto and recommend consulting thoracic surgery for consultation. 3. Recommend repeat chest xray in 1 week to monitor possible recurrence of pneumothorax. Encounter type: initial encounter Fracture type: closed Laterality: left Rib fracture type: single rib Qualified Code(s): S22.32XA - Fracture of one rib, left side, initial encounter for closed fracture (2) Opiate dependence: (3) Alcohol abuse: (4) Alcoholism: Subjective Mr. Saldivar is a 59 year old male that received a right T8, T9 intercostal nerve block yesterday by Dr. Fuller. Patient states that the local anesthetic helped about one third of the chest wall pain for an hour. The pain has returned to it's preinjection level. He was found to have a small pneumothorax after the procedure and with repeat imaging yesterday it did appear to improve. He is complaining of some right upper chest wall pain and shortness of breath this morning. Patient does continue to utilizing IV Morphine and PO Percocet. Yesterday he utilized 16mg of IV Morphine and Percocet 5/325mg x 2. Pain is currently 6/10. He does see [facility] regularly in [place] for low back pain and he does plan to continue to follow up with that office. Patient does receive Percocet 5/325mg #120 each month for chronic low back pain. No coughing, wheezing, difficulty breathing. Case discussed with Dr. Fuller Pain Assessment Pain Assessment [facility] Combined Pain Scale: 6-Mod to Severe - Significant l imitations of ADLs. Hard to do anything Physical Exam Physical Exam: GENERAL: Speech and cognition is intact. Mood and affect is appropriate. Does not appear in acute distress. CHEST: There is tenderness along the right T9 intercostal region. Increased pain with AP/lateral chest compression. PULM: Clear to auscultation. No wheezes, rales, or rhonchi. NEURO: Normal gait. Awake, alert, and oriented x 3. SKIN: No erythema, edema, or drainage of the injection site. Results Diagnostic Review Radiology Findings: XR chest inspiration/expiratio CLINICAL HISTORY: Evaluate for rt sided pneumothorax. deep insp/exp COMPARISON STUDY: Chest radiograph September 15, 2019 and September 21, 2019 at 2:17 PM. FINDINGS: Lung volumes are normal. Lungs are clear. There is no pleural effusion. Note is made of a small right apical pneumothorax with pleural separation of 5 mm. There is cardiomegaly without evidence for pulmonary edema. IMPRESSION: Small right apical pneumothorax with pleural separation of [address] Fuller at time of dictation. Electronically signed by: German Braswell M.D. 09/21/2019 3:44 PM XR chest inspiration/expiratio CLINICAL HISTORY: Right pneumothorax. COMPARISON STUDY: Chest radiograph September 21, 2019 at 3:23 PM. FINDINGS: A trace right apical pneumothorax has decreased in size since prior exam. This is only evident on the expiration image. There is no evidence for pulmonary edema or pneumonia. IMPRESSION: Interval decrease in size of a trace right apical pneumothorax. Electronically signed by: German Braswell M.D. 09/21/2019 7:10 PM
[2019-09-22] MEDS ORDERED: OXYBUTYNIN CHLORIDE XL 5 MG TABCR PO SCH (09:00)
--- NOTE | 2019-09-22 09:02 | XRay Report ---
XR chest inspiration/expiratio CLINICAL HISTORY: 59 years-old Male presenting with ins/exp views follow up pneumothorax. TECHNIQUE: PA views of the chest in inspiration and expiration were obtained. COMPARISON: 09/21/2019. FINDINGS: Atherosclerosis with mild tortuosity of the thoracic aorta. Cardiac silhouette normal in size. No con vincing residual pneumothorax is appreciated. Lungs and pleural spaces clear. Degenerative changes of the thoracic spine. Old posterior left rib fractures may be present. Surgical clips and surgical mat erial project over the gastroesophageal region and the epigastrium. IMPRESSION: 1. No convincing residual right pneumothorax. Electronically signed by: Lebron Maravilla M.D. 09/22/2019 9:00 AM
== END 2019-09-22 10:26 | disposition home or self-care (01) | DRG 897 ==
LOC: ED 19:34 → SUATTDRO 09-12 10:00 → 2S 09-12 10:00 → 2N 09-18 12:15 → 4W 09-20 11:01